=== PATIENT | female | born 1955 | race Caucasian/White ===

== ENCOUNTER → 2020-08-29 15:24 | Outpatient (CLI) | payer MEDICARE, BC, SELFPAY ==
[2020-08-29 16:33] LABS: Coronavirus 19 IgG Antibody Negative (Negative); Coronavirus 19 IgM Antibody Negative (Negative)
[2020-09-02 22:25] LABS: F001-IgE Egg White 0.43 kU/L (Class I); F002-IgE Milk <0.10 kU/L (Class 0); F003-IgE Codfish <0.10 kU/L (Class 0); F004-IgE Wheat 2.87 kU/L (Class III); F013-IgE Peanut 0.14 kU/L (Class 0/I); F014-IgE Soybean 0.13 kU/L (Class 0/I); F024-IgE Shrimp <0.10 kU/L (Class 0); F256-IgE Walnut 0.11 kU/L (Class 0/I); F338-IgE Scallop <0.10 kU/L (Class 0)
[2020-09-03 11:14] LABS: F010-IgE Sesame Seed 0.26 kU/L (Class 0/I)
== END ==
PROVIDERS: Visit Provider Internal Medicine Gastroenterology
DX: R13.10 Dysphagia, unspecified; Z20.822 Contact with and (suspected) exposure to COVID-19; J45.909 Unspecified asthma, uncomplicated
CPT/HCPCS: 36415; 86003; 86008; 86328

== ENCOUNTER 2020-08-31 08:53 | Day surgery (SDC) | payer MEDICARE, BC, SELFPAY ==
[2020-08-29 13:28] VITALS: BMI 34.0
[2020-08-31] VITALS (7 sets, daily range): BP systolic 111–142; BP diastolic 61–73; PULSE 61–80; RESP 18–20; TEMP 36.4–36.5; O2SAT 95–98
--- NOTE | 2020-08-31 10:48 | HMH.PROC ---
[facility] Procedure Note Procedure Note:: Upper Endoscopy Procedure Report: Esophagogastroduodenoscopy with cold biopsies and TTS balloon dilation Endoscopost: Mic Vang II, MD Referring Physician: Leon Richards MD ([facility]) Date of Procedure: August 31, 2020 Equipment: Olympus GIF 180 standard upper endoscope Sedation: MAC sedation Indications: Mrs. Sahni is a 64-year-old female who is here for diagnostic/therapeutic upper endoscopy. The patient has had progressive dysphagia to primarily breads and meats (solid foods) and must chew her food well when she swallows. She has no liquid dysphagia. She has had to regurgitate food content at times. This is increasing in frequency and severity. She reports painful swallowing with this. She reports no significant heartburn or reflux which is only occasional. She has occasional bloating and belching. The patient did have an EGD with ak in June 2013 and had mild changes of eosinophilic esophagitis and I did dilate the esophagus to 18 mm. She did have a colonoscopy with ak in June 2018 and has a history of adenomatous polyps. Her sister had colon cancer in her early 60s and her mother had colon cancer at the age of 81. Procedure: Prior to the procedure, a history and physical exam was performed, and patient's medications and allergies were reviewed. The risks, benefits and alternatives of the sedation and procedure were discussed with the patient. All questions were answered and informed consent was obtained. The patient was brought to the procedure room. Patient identification and proposed procedure were verified by the physician and the nurse. The patient was placed in a left lateral decubitus position and the scope was passed under direct vision. Throughout the procedure, the patient's blood pressure, pulse, and oxygen saturations were monitored continuously. The upper GI endoscopy was accomplished without difficulty. The patient tolerated the procedure well. Findings: The scope was passed directly into the upper esophagus and advanced to the third portion of the duodenum. The post bulbar duodenum and duodenal bulb were normal with normal mucosa and conniventes. The scope was withdrawn through a normal duodenal bulb and pylorus into the stomach. There was moderate bile reflux with linear reactive gastropathy of the antrum and body. The remainder of the antrum, body and fundus of the stomach were grossly normal. Upon retroflexion there was 2 to 3 cm medium sized hiatal hernia. 2 biopsies were taken in the antrum and along the lesser curvature for histology to rule out gastritis and/or H pylori. The scope was then withdrawn into the esophagus. There was a serrated Z-line and biopsies were taken at the GE junction. There was a distal fibrous ring and there was diffuse corrugation, striation and furrowing within the esophagus and biopsies were taken from the distal and proximal esophagus separately to rule out eosinophilic esophagitis. The entire esophagus was dilated to 18 mm/54 Turkish with a TTS hydrostatic balloon. The remainder of the esophageal mucosa was normal. Impression: 1. Probable eosinophilic esophagitis with esophageal stenosis status post dilation to 18 mm 2. Nonerosive GERD with medium sized (3 cm) hiatal hernia 3. Bile reflux with linear reactive gastropathy Plan: I will place the patient on omeprazole 40 mg p.o. daily. I will follow-up the biopsies. I am going to recommend Rast food allergy testing today. If she does have evidence of food allergens, I will recommend a 12-week course of fluticasone. We will discuss eosinophilic esophagitis and treatment options including diet.
--- NOTE | 2020-08-31 11:55 | SUR.PHASEII ---
LAB WORK TO BE DONE ON BLOOD SAMPLE THAT IS ALREADY IN [facility].
--- NOTE | 2020-08-31 13:48 | P.PN_ITS ---
[facility] Anesthesia Checklist - Patient Identification Patient Identification: Arm Band - Structural Data Admitted From: Home Planned Operative Procedure/s: egd Consent for Planned Operative Procedure(s) Verified: Yes Verified Documents: Surgical Consent - Chart Verification Results Verified: None - Anesthesia Plan Anesthesia Risk discussed: Yes Anesthesia Plan: Verified ASA Class: III Anesthesia Type: General [facility] History Medical History: Reports:: Cancer (breast), Hyperlipidemia, Hypertension Denies:: Diabetes Mellitus Type 1, Diabetes Mellitus Type 2, Internal Pacemaker, MRSA, Seizures *Have you ever received a pneumonia vaccine?: Yes *Have you received a flu vaccine this season?: Yes Anesthesia experience/problems:: none Laterality Cases: Right: Arthroscopy Hip, Lumpectomy Other Surgeries: Yes: Cardiac Catheterization. No: Pacemaker Amputation: No Fractures: No - *Social History Last grade of school completed: Advanced degree Alcohol Intake: current Alcohol Intake Frequency:: a few times a month Substance Use Type: denies use *Occupational Status:: retired Housing: house Household Members: spouse *Travel in the last 8 weeks: Inside the [facility] Family Hx:: No significant family history
== END 2020-08-31 12:00 | disposition home or self-care (01) ==
LOC: OUTP 08:57
PROVIDERS: PCP Family Medicine; Visit Provider Internal Medicine Gastroenterology
PROC: 0DJ08ZZ Inspection of Upper Intestinal Tract, Via Natural or Artificial Opening Endoscopic (ICD-10-PCS; CPT 43235; principal; 2020-08-31 10:00)
DX: K22.2 Esophageal obstruction (principal); K44.9 Diaphragmatic hernia without obstruction or gangrene; K21.9 Gastro-esophageal reflux disease without esophagitis; K31.9 Disease of stomach and duodenum, unspecified; K22.9 Disease of esophagus, unspecified; Z80.0 Family history of malignant neoplasm of digestive organs; Z85.3 Personal history of malignant neoplasm of breast; E78.5 Hyperlipidemia, unspecified; I10 Essential (primary) hypertension; Z88.0 Allergy status to penicillin; Z88.8 Allergy status to other drugs, medicaments and biological substances; Z91.040 Latex allergy status
CPT/HCPCS: 43239; 43249; 88305; C1726

== ENCOUNTER → 2020-12-03 15:38 | Outpatient (POV) | payer MEDICARE, BC, SELFPAY | PROVIDERS: Visit Provider Nurse Practitioner Family | DX: Z00.00 Encounter for general adult medical examination without abnormal findings (principal) ==

== ENCOUNTER → 2021-09-18 14:21 | Outpatient (CLI) | payer MEDICARE, BC, SELFPAY ==
--- NOTE | 2021-09-18 | US_ITS ---
PROCEDURE INFORMATION: Exam: US Right Breast, Complete MG Bilateral Diagnostic Breast Tomosynthesis Exam date and time: 09/18/2021 2:28 PM Age: 65 years old Clinical indication: HX of right breast cancer, new right palp for 1 week that has increased in size since she found it, found after trauma to right breast a month ago, PT has had radiation to right breast TECHNIQUE: Imaging protocol: Complete ultrasound of all four quadrants of the Right breast and the retroareolar regions, including ultrasound of the axilla when performed. Bilateral Diagnostic tomosynthesis and 2D mammography including computer-aided detection (CAD) when performed. Unilateral or bilateral exam. COMPARISON: No relevant prior studies available. FINDINGS: MAMMOGRAPHY: The breast tissue is composed of scattered areas of fibroglandular density. A skin marker was placed over the palpable abnormality in the right 9 o'clock axis. The spot compression views demonstrate normal overlapping fibroglandular structures. There is no stellate mass, suspicious architectural distortion or suspicious microcalcifications in either breast to suggest malignancy.Stable post operative architectural distortion in the right upper outer quadrant due to prior lumpectomy for carcinoma. No skin thickening or axillary adenopathy. ULTRASOUND: Sonographic images of the right 9 o'clock axis 4 cm from the nipple where the patient reports palpable abnormality demonstrates slight increased echogenicity of the subcutaneous fat and underlying subcentimeter cysts suggestive of benign posttraumatic fat necrosis. Benign scar more peripherally in the right 9 o'clock axis is due to prior lumpectomy. Sonography of the remainder of the right breast does not demonstrate any suspicious findings. No axillary adenopathy. IMPRESSION: Palpable abnormality in the right lateral breast corresponds sonographically to probable posttraumatic benign fat necrosis. A six-month follow-up targeted right breast ultrasound is recommended to ensure stability over time unless otherwise clinically indicated. ASSESSMENT: BI-RADS Category 3: Probably benign
== END ==
PROVIDERS: PCP Family Medicine; Visit Provider Family Medicine
DX: N63.13 Unspecified lump in the right breast, lower outer quadrant (principal); Z85.3 Personal history of malignant neoplasm of breast
CPT/HCPCS: 76641; 77062; 77066; G0279

== ENCOUNTER → 2022-03-18 14:38 | Outpatient (CLI) | payer MEDICARE, BC, SELFPAY ==
--- NOTE | 2022-03-18 14:43 | US_ITS ---
PROCEDURE INFORMATION: Exam: US Right Breast, Complete Exam date and time: 03/18/2022 3:01 PM Age: 66 years old Clinical indication: Short-term radiographic follow-up for probable fat necrosis in the right lateral breast TECHNIQUE: Imaging protocol: Complete ultrasound of all four quadrants of the Right breast and the retroareolar regions, including ultrasound of the axilla when performed. COMPARISON: US BREAST RT COMPLETE 09/18/2021 3:09 PM FINDINGS: Breast: Sonographic images of the right 9 o'clock axis 6 cm from the nipple demonstrates a vertically oriented irregularly marginated hypoechoic solid mass measuring 1.0 x 0.5 x 1.0 cm in dimension. The finding may reflect fat necrosis. However underlying carcinoma cannot excluded. Sonographic images of the right 9 o'clock axis 9 cm from the nipple over an area scarring does not demonstrate any suspicious findings. No focal findings in the remainder of the right breast or retroareolar region. No axillary adenopathy. IMPRESSION: Indeterminate solid appearing vertically oriented mass in the right 9 o'clock axis 6 cm from the nipple. Ultrasound-guided core biopsy is recommended for further evaluation. ASSESSMENT: BI-RADS Category 4: Suspicious
== END ==
PROVIDERS: PCP Family Medicine; Visit Provider Family Medicine
DX: R92.8 Other abnormal and inconclusive findings on diagnostic imaging of breast (principal)
CPT/HCPCS: 76641

== ENCOUNTER → 2022-03-27 10:26 | Outpatient (CLI) | payer MEDICARE, BC, SELFPAY ==
--- NOTE | 2022-03-27 10:35 | US_ITS ---
FINAL REPORT CLINICAL HISTORY: ABN MAMM,MASS OF UPPER OUTER QUADRANT FINDINGS: ULTRASOUND-GUIDED RIGHT BREAST CORE BIOPSY TECHNIQUE: Limited images were obtained to localize region of interest. The right breast was prepped in a routine sterile fashion and locally anesthetized with 1% lidocaine. Standard written informed consent was obtained. The biopsy needle was positioned within the outer periphery of the lesion. A total of 4 passes were made with a 18 gauge core biopsy needle. A biopsy marker clip was deployed in satisfactory position. Postbiopsy mammogram showed postbiopsy changes with clip in satisfactory position. Procedure was well tolerated . CONCLUSION: 1. Technically successful ultrasound guided core biopsy of right breast lesion as above. 2. Biopsy marker clip deployed Authenticated and ERN
--- NOTE | 2022-03-27 10:38 | MM_ITS ---
FINAL REPORT CLINICAL HISTORY: .s/p clip placement, breast biopsy FINDINGS: MAMMOGRAM RIGHT TECHNIQUE: Standard digital 2-D views COMPARISON: None DENSITY: There are scattered areas of fibroglandular density FINDINGS: Post biopsy marker clip is noted to be in satisfactory position. Biopsy marker clip is noted within a partially calcified nodule with lucent center. This would correspond to a benign nodule accounting for the sonographic lesion. Postbiopsy changes are noted. IMPRESSION: Biopsy marker clip in good position RECOMMENDATION: Pending histopathology evaluation Authenticated and [facility]N
== END ==
PROVIDERS: PCP Internal Medicine; Visit Provider Internal Medicine
DX: N63.11 Unspecified lump in the right breast, upper outer quadrant (principal)
CPT/HCPCS: 19083; 76942; 77065; 88305

== ENCOUNTER → 2022-09-19 15:08 | Outpatient (CLI) | payer MEDICARE, BC, SELFPAY ==
--- NOTE | 2022-09-19 15:11 | MM_ITS ---
PROCEDURE INFORMATION: Exam: MG Bilateral Screening 3D Mammography Exam date and time: 09/19/2022 3:10 PM Age: 66 years old Clinical indication: Screening mammogram. Personal history of right breast cancer with Lumpectomy and radiation therapy TECHNIQUE: Imaging protocol: Bilateral Screening tomosynthesis and 2D mammography including computer-aided detection (CAD) when performed. COMPARISON: 1. MG MM CLIP PLACEMENT RT 03/27/2022 11:15 AM 2. MG MM DIG MAMM BI DX W/CAD 09/18/2021 2:32 PM 3. MG MAMMO SCREENING DIGITAL TOMOSYNTHESIS BILATERAL W CAD 09/04/2020 1:36 PM FINDINGS: MAMMOGRAPHY: Breast composition: There are scattered areas of fibroglandular density. Mass: None. Architectural distortion: No new or suspicious architectural distortion. Calcifications: Stable benign-appearing calcifications are present. No new or suspicious cluster of microcalcifications have developed. Asymmetric density: No new or suspicious asymmetric density is present Skin thickening: None. Axillary adenopathy: None. Other findings: Stable postoperative findings are present in the upper outer right breast. IMPRESSION: No mammographic evidence of malignancy. Recommend annual screening mammography unless otherwise clinically indicated. ASSESSMENT: BI-RADS category 2: Benign
== END ==
PROVIDERS: PCP Internal Medicine; Visit Provider Internal Medicine
DX: Z12.31 Encounter for screening mammogram for malignant neoplasm of breast (principal)
CPT/HCPCS: 77063; 77067

== ENCOUNTER → 2023-03-24 14:09 | Outpatient (CLI) | payer MEDICARE, BC, SELFPAY ==
--- NOTE | 2023-03-24 14:14 | US_ITS ---
PROCEDURE INFORMATION: Exam: US Right Breast, Complete Exam date and time: 03/24/2023 2:38 PM Age: 67 years old Clinical indication: History of right lumpectomy. TECHNIQUE: Imaging protocol: Complete ultrasound of all four quadrants of the right breast and the retroareolar regions, including ultrasound of the axilla when performed. COMPARISON: US BREAST RT COMPLETE 03/18/2022 3:01 PM FINDINGS: Breast: Sonographic images of the right breast including the retroareolar region, all 4 quadrants and the axilla do not demonstrate any suspicious solid or cystic masses. Two incidental subcentimeter benign oil cysts in the right 9 o'clock axis. No suspicious architectural distortion or acoustical shadowing. Architectural distortion from post lumpectomy scarring is again noted in the right peripheral 9 o'clock axis. No suspicious skin thickening or axillary adenopathy. IMPRESSION: No sonographic evidence of malignancy. Annual mammographic screening is recommended in September 2023 unless otherwise clinically indicated. ASSESSMENT: BI-RADS Category 2: Benign
== END ==
PROVIDERS: PCP Internal Medicine; Visit Provider Internal Medicine
DX: N63.13 Unspecified lump in the right breast, lower outer quadrant (principal)
CPT/HCPCS: 76641

== ENCOUNTER 2023-09-11 12:11 | Outpatient (CLI) | payer MEDICARE, BC, SELFPAY ==
--- NOTE | 2023-09-11 12:23 | XR_ITS ---
FINAL REPORT CLINICAL HISTORY: foot pain FINDINGS: Right foot Three views were obtained. There is no acute fracture or dislocation. The joint spaces appear normal. There is mild calcaneal spurring. No soft tissue abnormality is identified. IMPRESSION: No acute process. Reviewed, Interpreted and Dictated by Ciara Rolon MD Transcribed by Suly Stevens Authenticated and . [facility]
--- NOTE | 2023-09-11 12:23 | XR_ITS ---
FINAL REPORT CLINICAL HISTORY: foot pain FINDINGS: Left foot Three views were obtained. There is no acute fracture or dislocation. The joint spaces appear normal. There is mild calcaneal spurring. No soft tissue abnormality is identified. IMPRESSION: No acute process. Reviewed, Interpreted and Dictated by Ciara Rolon MD Transcribed by Suly Stevens Authenticated and [facility]
[2023-09-11 12:31] LABS: Basophils # 0.1 K/mm3 (0-0.2); Eosinophils # 0.2 K/mm3 (0.0-0.4); Eosinophils % 2.9 % (0.1-12.0); Hematocrit 41.7 % (37.0-47.0); Hemoglobin 13.7 g/dL (12.2-16.2); Lymphocytes # 2.3 K/mm3 (0.7-4.5); Lymphocytes % 35.2 % (10-50); Mean Corpuscular HGB Conc 32.8 g/dL (31.8-35.4); Mean Corpuscular Hemoglobin 30.4 pg (27.0-31.2); Mean Corpuscular Volume 92.9 fl (81-99); Mean Platelet Volume 8.2 fl (7.4-10.4); Monocytes # 0.4 K/mm3 (0.1-1.0); Monocytes % 6.6 % (1.7-9.3); Neutrophils # 3.5 K/mm3 (1.8-7.8); Neutrophils % 54.3 % (37.0-80.0); Platelet Count 224 K/mm3 (142-424); Red Blood Count 4.49 M/mm3 (4.20-5.40); Red Cell Distribution Width 12.5 % (11.5-17.5); White Blood Count 6.4 K/mm3 (4.8-10.8)
[2023-09-11 13:02] LABS: Alanine Aminotransferase 27 U/L (12-78); Albumin Level 4.1 g/dl (3.5-5.0); Albumin/Globulin Ratio 1.6 (1.1-1.8); Alkaline Phosphatase 63 U/L (38-126); Anion Gap 8.2 mEq/L (5-15); Aspartate Amino Transferase 29 U/L (14-36); Bilirubin,Total 1.6 mg/dl (0.2-1.3); Blood Urea Nitrogen 13 mg/dl (7-17); Calcium 9.8 mg/dl (8.4-10.2); Carbon Dioxide 33 mmol/L (22.0-30.0); Chloride 107 mmol/L (98-107); Estimated Glomerular Filt Rate 71 ml/min (>60); GFR (African American) 86 ML/MIN (>60); Globulin 2.6 g/dL (1.3-3.2); Glucose 96 mg/dl (74-100); Potassium 4.2 mmoL/L (3.5-5.1); Sodium 144 mmol/L (136-145); Total Protein,Serum 6.7 g/dl (6.3-8.2)
[2023-09-11 13:07] LABS: Erythrocyte Sedimentation Rate 15 mm/hr (0-30)
[2023-09-11 13:13] LABS: C-Reactive Protein < 0.3 mg/L (0-4)
== END 2023-09-11 23:59 ==
LOC: LAB 12:13
PROVIDERS: PCP Internal Medicine; Visit Provider Podiatrist
DX: L03.90 Cellulitis, unspecified (principal); M79.672 Pain in left foot; M79.671 Pain in right foot
CPT/HCPCS: 36415; 73630; 80053; 85025; 85651; 86140

== ENCOUNTER 2023-09-21 13:44 | Outpatient (CLI) | payer MEDICARE, BC, SELFPAY ==
--- NOTE | 2023-09-21 13:47 | MM_ITS ---
PROCEDURE INFORMATION: Exam: MG Bilateral Screening 3D Mammography Exam date and time: 09/21/2023 1:44 PM Age: 67 years old Clinical indication: Screening examination . Personal history of right breast carcinoma treated with lumpectomy and radiation in 1997. Family history of breast carcinoma. TECHNIQUE: Imaging protocol: Bilateral Screening tomosynthesis and 2D mammography including computer-aided detection (CAD) when performed. COMPARISON: 1. MG MM DIG SCREENING MAMM BI W/CAD 09/19/2022 3:10 PM 2. MG MM CLIP PLACEMENT RT 03/27/2022 11:15 AM 3. MG MM DIG MAMM BI DX W/CAD 09/18/2021 2:32 PM FINDINGS: MAMMOGRAPHY: Breast composition: There are scattered areas of fibroglandular density. Mass: No suspicious masses. Architectural distortion: No suspicious distortion. Stable post lumpectomy architectural distortion in the upper right breast. Calcifications: No suspicious calcifications. Asymmetric density: None. Skin thickening: None. Axillary adenopathy: None. IMPRESSION: No mammographic evidence of malignancy. Annual screening is recommended unless otherwise clinically indicated. ASSESSMENT: BI-RADS Category 2: Benign
== END 2023-09-21 23:59 ==
LOC: RAD 13:44
PROVIDERS: PCP Internal Medicine; Visit Provider Internal Medicine
DX: Z12.31 Encounter for screening mammogram for malignant neoplasm of breast (principal)
CPT/HCPCS: 77063; 77067

== ENCOUNTER 2024-06-08 13:04 | Outpatient (CLI) | payer MEDICARE, BC, SELFPAY ==
--- NOTE | 2024-06-08 13:08 | XR_ITS ---
PROCEDURE INFORMATION: Exam: XR Right Ankle Exam date and time: 06/08/2024 1:09 PM Age: 68 years old Clinical indication: Pain; Ankle; Right; Additional info: Ankle pain/injury TECHNIQUE: Imaging protocol: Radiologic exam of the right ankle. Views: 3 or more views. COMPARISON: CR XR ANKLE WT BEARING RT MIN 3V 06/08/2024 1:09 PM FINDINGS: Bones/joints: There is an acute nondisplaced transverse fracture through the base of the 5th metatarsal far partially visualized. Remaining osseous structures and joint surfaces are intact. There are small spurs arising from the posterior plantar aspect of the calcaneus. Alignment is maintained. Soft tissues: Unremarkable. IMPRESSION: Acute transverse fracture base 5th metatarsal
--- NOTE | 2024-06-08 13:08 | XR_ITS ---
PROCEDURE INFORMATION: Exam: XR Right Foot Complete; Alignment Exam date and time: 06/08/2024 1:09 PM Age: 68 years old Clinical indication: Pain; Foot; Right; Additional info: Foot pain/injury TECHNIQUE: Imaging protocol: Radiologic exam of the right foot. Views: 3 or more views. COMPARISON: CR XR FOOT WT BEARING RT 3V 06/08/2024 1:09 PM FINDINGS: Bones/joints: There is an acute transverse oriented nondisplaced fracture base of the 5th metatarsal with mild distraction of the fracture margins. No significant malalignment. Remaining osseous structures and joint surfaces are intact Soft tissues: Normal. IMPRESSION: Acute transverse fracture base 5th metatarsal.
--- NOTE | 2024-06-08 13:08 | XR_ITS ---
PROCEDURE INFORMATION: Exam: XR Right Tibia and Fibula Exam date and time: 06/08/2024 1:09 PM Age: 68 years old Clinical indication: Pain; Lower leg; Right; Additional info: Pain/injury TECHNIQUE: Imaging protocol: Radiologic exam of the right tibia and fibula. Views: 2 views. COMPARISON: CR XR ANKLE WT BEARING RT MIN 3V 06/08/2024 1:09 PM FINDINGS: Bones/joints: Mild-moderate degenerative changes involving the knee joint. Osseous structures are otherwise unremarkable. No evidence of fracture or malalignment. No underlying bone lesion detected. Soft tissues: Unremarkable. IMPRESSION: No acute bony abnormalities.
== END 2024-06-08 23:59 | disposition home or self-care (01) ==
LOC: RAD 13:05
PROVIDERS: PCP Internal Medicine; Visit Provider Podiatrist
DX: M79.671 Pain in right foot (principal)
CPT/HCPCS: 73590; 73610; 73630

== ENCOUNTER 2024-06-27 14:29 | Outpatient (CLI) | payer MEDICARE, BC, SELFPAY ==
--- NOTE | 2024-06-27 14:34 | XR_ITS ---
FINAL REPORT CLINICAL HISTORY: pain COMPARISON: None FINDINGS: RIGHT ANKLE 3 views of the right ankle were obtained. There is no acute fracture or dislocation. The mortise is intact. Visualized joint spaces are normally aligned. Soft tissues are unremarkable. A small plantar spur is noted. IMPRESSION: No acute bony abnormality. Reviewed, Interpreted and Dictated by Michael Levin MD Transcribed by Debora Darden Authenticated and [facility]
--- NOTE | 2024-06-27 14:34 | XR_ITS ---
FINAL REPORT CLINICAL HISTORY: foot pain COMPARISON: 09/11/2023 FINDINGS: RIGHT FOOT Three views of the right foot were obtained. Best seen on the lateral view, there is a displaced fracture through the base of the fifth metatarsal consistent with a Griffin type fracture. The joint spaces appear normal. No acute soft tissue abnormality is seen. A small calcaneal spur is noted. IMPRESSION: Displaced Griffin type fracture through the base of the fifth metatarsal. Reviewed, Interpreted and Dictated by Michael Levin MD Transcribed by Debora Darden Authenticated and [facility]
== END 2024-06-27 23:59 | disposition home or self-care (01) ==
LOC: RAD 14:31
PROVIDERS: PCP Internal Medicine; Visit Provider Podiatrist
DX: M79.671 Pain in right foot (principal); S93.491A Sprain of other ligament of right ankle, initial encounter; M25.571 Pain in right ankle and joints of right foot
CPT/HCPCS: 73610; 73630

== ENCOUNTER 2024-07-13 07:44 | Outpatient (CLI) | payer MEDICARE, BC, SELFPAY ==
--- NOTE | 2024-07-13 07:45 | CT_ITS ---
FINAL REPORT TECHNIQUE: Thin section axial CT images with coronal and sagittal reformats were performed. 3D images were obtained and reviewed. This study was performed with techniques to keep radiation doses as low as reasonably achievable (ALARA). Individualized dose reduction techniques using automated exposure control or adjustment of mA and/or kV according to the patient''s size were employed. CLINICAL HISTORY: Right Foot Pain COMPARISON: None FINDINGS: There is a mildly comminuted fracture at the proximal aspect of the fifth metatarsal. Mild distraction is noted of the fracture fragments measuring up to 3 mm. There is no evidence of callus formation. There are no masses or fluid collections. There are no soft tissue abnormalities. IMPRESSION: Fifth metatarsal fracture with mild distraction of the fracture fragments. No evidence of callus formation. Reviewed, Interpreted and Dictated by Dhaval Huddleston III, MD Transcribed by Louisa Crowley Authenticated and [facility]
== END 2024-07-13 23:59 | disposition home or self-care (01) ==
LOC: RAD 07:45
PROVIDERS: PCP Internal Medicine; Visit Provider Podiatrist
DX: M25.571 Pain in right ankle and joints of right foot (principal); S93.491D Sprain of other ligament of right ankle, subsequent encounter; S92.354G Nondisplaced fracture of fifth metatarsal bone, right foot, subsequent encounter for fracture with delayed healing
CPT/HCPCS: 73700

== ENCOUNTER 2024-08-01 12:34 | Outpatient (CLI) | payer MEDICARE, BC, SELFPAY ==
--- NOTE | 2024-08-01 12:40 | XR_ITS ---
FINAL REPORT CLINICAL HISTORY: Foot Pain; fifth metatarsal fracture COMPARISON: 06/27/2024 FINDINGS: RIGHT FOOT 3 views of the right foot were obtained. There is sclerosis at the site of the known fifth metatarsal base fracture. However, the fracture line remains evident on the lateral view. There is up to 3 mm of separation at the level of the plantar surface which is unchanged. Soft tissues are unremarkable. IMPRESSION: Some sclerosis at the fracture site without evidence of bony union. Mild displacement of the fracture is stable on the lateral view. Reviewed, Interpreted and Dictated by Ciara Rolon MD Transcribed by Louisa Crowley Authenticated and [facility]
== END 2024-08-01 23:59 | disposition home or self-care (01) ==
LOC: RAD 12:35
PROVIDERS: PCP Internal Medicine; Visit Provider Podiatrist
DX: M79.671 Pain in right foot (principal)
CPT/HCPCS: 73630

== ENCOUNTER 2024-09-08 13:08 | Outpatient (CLI) | payer MEDICARE, BC, SELFPAY ==
--- NOTE | 2024-09-08 13:14 | XR_ITS ---
FINAL REPORT CLINICAL HISTORY: fracture follow up COMPARISON: 08/01/2024 FINDINGS: RIGHT FOOT 3 views of the right foot were obtained. There is no acute fracture or dislocation. There is a fracture of the proximal fifth metatarsal which was present on the prior exam of 08/01/2024. There is persistent visualization of an inferior fracture line seen best on the lateral view. The overall appearance is similar to the prior exam. Visualized joint spaces are normally aligned. Soft tissues are unremarkable. IMPRESSION: Persistent inferior fracture line seen best on the lateral view, stable since the prior exam of 08/01/2024. Reviewed, Interpreted and Dictated by Michael Levin MD Transcribed by Maddison Merritt Authenticated and [facility]
== END 2024-09-08 23:59 | disposition home or self-care (01) ==
LOC: RAD 13:11
PROVIDERS: PCP Internal Medicine; Visit Provider Podiatrist
DX: M79.671 Pain in right foot (principal); S92.354K Nondisplaced fracture of fifth metatarsal bone, right foot, subsequent encounter for fracture with nonunion
CPT/HCPCS: 73630

== ENCOUNTER 2024-09-30 15:55 | Outpatient (CLI) | payer MEDICARE, BC, SELFPAY ==
--- NOTE | 2024-09-30 16:00 | XR_ITS ---
PROCEDURE INFORMATION: Exam: XR Right Foot Complete; Alignment Exam date and time: 09/30/2024 4:10 PM Age: 69 years old Clinical indication: Other: 5th met fracture eval TECHNIQUE: Imaging protocol: Radiologic exam of the right foot. Views: 3 or more views. COMPARISON: CR XR FOOT WT BEARING RT 3V 09/08/2024 1:16 PM FINDINGS: Bones/joints: Subtle fracture at the base of the 5th metatarsal is unchanged from the prior examination. Calcaneal spurs. Joint spaces are preserved. Soft tissues: Normal. IMPRESSION: Unchanged appearance of the proximal 5th metatarsal fracture.
--- NOTE | 2024-09-30 16:03 | MM_ITS ---
PROCEDURE INFORMATION: Exam: MG Bilateral Screening 3D Mammography Exam date and time: 09/30/2024 4:10 PM Age: 69 years old Clinical indication: Screening examination. Personal history of right breast cancer, status post lumpectomy and radiation in 1997. TECHNIQUE: Imaging protocol: Bilateral Screening tomosynthesis and 2D mammography including computer-aided detection (CAD) when performed. COMPARISON: 1. MG MM DIG SCREENING MAMM BI W/CAD 09/21/2023 1:44 PM 2. MG MM DIG SCREENING MAMM BI W/CAD 09/19/2022 3:10 PM 3. MG MM CLIP PLACEMENT RT 03/27/2022 11:15 AM 4. MG MM DIG MAMM BI DX W/CAD 09/18/2021 2:32 PM FINDINGS: MAMMOGRAPHY: Breast composition: There are scattered areas of fibroglandular density. Mass: None. Architectural distortion: Stable right post lumpectomy architectural distortion and deformity. Calcifications: No suspicious calcifications. Asymmetric density: None. Skin thickening: None. Axillary adenopathy: None. IMPRESSION: No mammographic evidence of malignancy. Annual screening is recommended unless otherwise clinically indicated. In women diagnosed with breast cancer before age 50 or with personal histories of breast cancer and dense breasts, the [employer] recommends annual supplemental MRI in addition to yearly mammography. Alternative supplemental studies may include breast sonography or contrast enhanced mammography. ASSESSMENT: BI-RADS Category 1: Negative.
== END 2024-09-30 23:59 | disposition home or self-care (01) ==
LOC: RAD 15:56
PROVIDERS: PCP Internal Medicine; Visit Provider Internal Medicine
DX: Z12.31 Encounter for screening mammogram for malignant neoplasm of breast (principal); M79.671 Pain in right foot; S92.354K Nondisplaced fracture of fifth metatarsal bone, right foot, subsequent encounter for fracture with nonunion
CPT/HCPCS: 73630; 77063; 77067

== ENCOUNTER 2024-10-24 14:23 | Outpatient (CLI) | payer MEDICARE, BC, SELFPAY ==
--- NOTE | 2024-10-24 14:26 | XR_ITS ---
FINAL REPORT CLINICAL HISTORY: eval on right fifth met fracture COMPARISON: 09/30/2024. FINDINGS: RIGHT FOOT 3 views of the right foot were obtained. There is no acute fracture or dislocation. There is a transverse fracture of the base of the fifth metatarsal, which remains mildly displaced. Osteopenia is present. Visualized joint spaces are otherwise normally aligned. Mild degenerative changes of the midfoot are present. Soft tissues are unremarkable. IMPRESSION: Transverse fracture of the base of the fifth metatarsal, remained stable in appearance since the prior exam of 09/30/2024. Reviewed, Interpreted and Dictated by Ciara Rolon MD Transcribed by Maddison Merritt Authenticated and [facility]
== END 2024-10-24 23:59 | disposition home or self-care (01) ==
LOC: RAD 14:24
PROVIDERS: PCP Internal Medicine; Visit Provider Podiatrist
DX: M79.671 Pain in right foot (principal); S82.54XD Nondisplaced fracture of medial malleolus of right tibia, subsequent encounter for closed fracture with routine healing
CPT/HCPCS: 73630

== ENCOUNTER 2024-11-21 13:44 | Outpatient (CLI) | payer MEDICARE, BC, SELFPAY ==
--- NOTE | 2024-11-21 13:49 | XR_ITS ---
FINAL REPORT CLINICAL HISTORY: Right 5th Metarsal Fracture COMPARISON: 10/24/2024 FINDINGS: RIGHT FOOT 3 views of the right foot were obtained. There has been progressive healing of the transverse fracture of the base of the 5th metatarsal. Visualized joint spaces are normally aligned. A small to moderate plantar calcaneal spur is noted. Soft tissues are unremarkable. IMPRESSION: Healing 5th metatarsal fracture. Reviewed, Interpreted and Dictated by Michael Levin MD Transcribed by Louisa Crowley Authenticated and [facility]
== END 2024-11-21 23:59 | disposition home or self-care (01) ==
LOC: RAD 13:45
PROVIDERS: PCP Internal Medicine; Visit Provider Podiatrist
DX: M79.671 Pain in right foot (principal)
CPT/HCPCS: 73630

== ENCOUNTER 2024-11-30 09:04 | Outpatient (CLI) | payer MEDICARE, BC, SELFPAY ==
--- NOTE | 2024-11-30 09:11 | XR_ITS ---
FINAL REPORT TECHNIQUE: Bone densitometry calculations of the lumbar spine and bilateral hips were obtained. CLINICAL HISTORY: SCREENING COMPARISON: None FINDINGS: Using L1-4, the bone mineral density of the spine is 1.050 g/cm2, corresponding to T-score of 0.0 and a Z score of 2.2. This is within the range of normal. Using the left hip, the bone mineral density of the femoral neck is 0.832 g/cm2, corresponding to a T-score of -0.2 and a Z-score of 1.7. This is within the range of normal. Using the right forearm, the bone mineral density of the 1/3 is 0.538 g/cm?, corresponding to a T-score of -2.6 and a Z-score of -0.4. NOTE: T-score: Standard deviation compared with peak bone mass of young adult mean. *Following the recommendations of the International Society of Bone densitometry, classification of hip BMD is based on the lower of two T-scores; total hip or femoral neck. IMPRESSION: 1. Bone mineral density of the lumbar spine within the range of normal. 2. Bone mineral density of the left femoral neck within the range of normal. 3. Bone mineral density of the right forearm is within the range of osteoporosis. Reviewed, Interpreted and Dictated by Juanis Wooyd MD Transcribed by Maddison Merritt Authenticated and [facility]
== END 2024-11-30 23:59 | disposition home or self-care (01) ==
LOC: RAD 09:05
PROVIDERS: PCP Internal Medicine; Visit Provider Internal Medicine
DX: Z78.0 Asymptomatic menopausal state (principal)
CPT/HCPCS: 77080

== ENCOUNTER 2025-02-20 13:43 | Outpatient (CLI) | payer MEDICARE, BC, SELFPAY ==
--- NOTE | 2025-02-20 13:45 | XR_ITS ---
FINAL REPORT CLINICAL HISTORY: evaluate right 5th met fracture healing COMPARISON: 11/21/2024 FINDINGS: Three views of the right foot show a healed 5th metatarsal base fracture with minimal residual deformity. Scattered degenerative changes are noted. There is osteopenia. IMPRESSION: Healed 5th metatarsal fracture. Reviewed, Interpreted and Dictated by Ciara Rolon MD Transcribed by Louisa Crowley Authenticated and [facility]
--- OUTSIDE RECORDS SUMMARY | 2025-02-20 13:53 | XMS_ITS | Clinical Summary ---
Author Organization [employer] ([place], [place], [place], [place]) Address [address] [place] [address] Care Team Providers Care Speech And Drama Teacher Name Role Phone Unavailable Primary Care Provider Unavailabl e Social History Tobacco Use Types Packs/Day Years Used Date Smoking Tobacco: Never Assessed Comments Unknown Sex and Gender Information Value Date Recorded Sex Assigned at Not on file Legal Sex Female 6:45 PM CDT Gender Identity Not on file Sexual Orientation Not on file Plan of Treatment Not on file
--- OUTSIDE RECORDS SUMMARY | 2025-02-20 13:53 | XMS_ITS | Encounter Summary ---
Author Organization [employer] ([place], [place], [place], [place]) Address [address] [place] [address] Care Team Providers Care Correction Lieutenant Name Role Phone Unavailable Primary Care Provider Unavailabl e Encounter Details Date Type Department Care Team (Late st Contact Info) Description 05/25/2019 Transcribed Document [facility] Family Medicine [address] [place] [address] ProviderAnupama MD [address] [place] [address] Social History Tobacco Use Types Packs/Day Years Used Date Smoking Tobacco: Never Assessed Comments Unknown Sex and Gender Information Value Date Recorded Sex Assigned at Not on file Legal Sex Female 6:45 PM CDT Gender Identity Not on file Sexual Orientation Not on file documented as of this encounter Miscellaneous Notes * [employer]ner Conversion Note - Historical ProviderMD - 05/25/2019 3:42 PM CDT Nursing Discharge Summary Entered On: 05/25/2019 15:42 EDT Performed On: 05/25/2019 15:42 EDT by Sandra Leon Registered Nurse Discharge Documentation Discharge Date/Time : 05/25/2019 19:30 EDT Sandra Leon Registered Nurse - 05/25/2019 19:51 EDT Patient Disposition, General : Discharge Discharge To : Home with ambulatory/outpatient follow-up Mode Of Departure, General Discharge : Private vehicle Accompanied By, Discharge : Spouse IV Discontinued : Yes Medications Given to Patient : No Personal Belongings With Patient : Yes Prescriptions Given to Patient : No Discharge Instructions Reviewed With, Opportunity For Questions Given : Patient Patient Education Completed : Yes Teaching Method : Explanation, Printed materials, Teach back method Teaching Evaluation : Verbalizes understanding Sandra Leon Registered Nurse - 05/25/2019 15:42 EDT Electronically signed by [facility] Conversion Meeting Manager Cerner at 11/28/2022 11:27 AM CDT documented in this encounter Plan of Treatment Not on file documented as of this encounter Visit Diagnoses Not on filedocumented in this encounter
--- OUTSIDE RECORDS SUMMARY | 2025-02-20 13:53 | XMS_ITS | Clinical Summary ---
Author Organization [facility] Address [address] [place], [place] [id number] Care Team Providers Care Montessori Lead Teacher Name Role Phone Jb Richards MD Primary Care Provider [phone] Allergies Active Allergy Reactions Criticality Noted Date Comments Ticagrelor Other - please docum ent in the comment field Low 07/01/2023 Disorientation and low BP Penicillins Itching Medium 07/01/2023 Social History Tobacco Use Types Packs/Day Years Used Date Smoking Tobacco: Never Assessed Comments Unknown Sex and Gender Information Value Date Recorded Sex Assigned at Not on file Legal Sex Female 7:38 PM EDT Gender Identity Not on file Sexual Orientation Not on file Last Filed Vital Signs Vital Sign Reading Time Taken Comments Blood Pressure 147/78 07/06/2023 8:44 AM EST Pulse 72 07/06/2023 8:44 AM EST Temperature - - Respiratory Rate - - Oxygen Saturation - - Inhaled Oxygen Concentration - - Weight - - Height - - Body Mass Index - - Plan of Treatment Health Maintenance Due Date Last Done Comments [facility]-Depression Screening 1955 [facility]-Infant/Child/Adol SDOH Screenings 1955 [facility]- SDOH Screenings 1971 [facility]-Adult SDOH Screenings 1971 CT Colonography 1998 Colonoscopy 1998 FIT-DNA 1998 FIT 1998 FOBT 1998 Sigmoidoscopy 1998 [facility]-Colorectal Cancer Screening 1998 [facility]-Breast Cancer Screening 09/04/202208/11, 07/21/2019, 07/09/2018, Additional history exists [facility]-Medicare Annual Wellness (AWV) 10/25/2023 10/24/2022 [facility]-DTaP,Tdap,and Td Vaccines (2 - Td or Tdap) 04/03/2024 04/03/2014 [id number] Vaccine (4 - season) 2024 07/01/2021, 11/14/2020, 10/05/2020 [facility]-Bone Density Scan 01/27/2025 01/27/2023, 023 [facility]-Influenza Vaccine (#1) 04/10/202504/30, 05/03/2021, 05/23/2019, Additional history exists [facility]-RSV Vaccine: 60+ Years or (1 - 1-dose 75+ series) 2028 [facility]-Zoster Vaccines Completed 05/10/2018, 8 [facility]-Hepatitis C Screening Completed 05/06/2022 [facility]-Pneumococcal Vaccine: 50+ Years Completed 10/24/2022, 05/24/2019 [facility]-Diabetes: Hemoglobin A1C Discontinued 04/30/2023, 05/06/2022 HPV Vaccines Aged Out No longer eligi ble based on patient's age to complete this topic [facility]-HIB Vaccines Aged Out No longer e ligible based on patient's age to complete this topic [facility]-Hepatitis A Vaccines Aged Out No longer eligible based on patient's age to complete this topic [facility]-IPV Vaccines Aged Out No longer e ligible based on patient's age to complete this topic [facility]-Rotavirus Vaccines Aged Out No lo nger eligible based on patient's age to complete this topic Insurance MEDICARE ANTHEM Care Teams Montessori Lead Teacher Relationship Specialty Start Date End Date Jb Richards MD [address] [place] [address] PCP - General 07/06/23
--- OUTSIDE RECORDS SUMMARY | 2025-02-20 13:53 | XMS_ITS | Referral Summary ---
Author Organization [employer] ([place], [place], [place], [place]) Address [address] [place] [address] Care Team Providers Care Clinic Office Assistant Name Role Phone Unavailable Primary Care Provider [...]
--- OUTSIDE RECORDS SUMMARY | 2025-02-20 13:53 | XMS_ITS | Encounter Summary ---
Author Organization [employer] ([place], [place], [place], [place]) Address [address] [place] [address] Care Team Providers Care Compliance Mgr Name Role Phone Unavailable Primary Care Provider Unavailabl e Encounter Details Date Type Department Care Team (Late st Contact Info) Description 05/25/2019 Transcribed Document [facility] Family Medicine [address] [place] [address] ProviderAnupama MD [address] [place], [place] [id number] Social History Tobacco Use Types Packs/Day Years Used Date Smoking Tobacco: Never Assessed Comments Unknown Sex and Gender Information Value Date Recorded Sex Assigned at Not on file Legal Sex Female 6:45 PM CDT Gender Identity Not on file Sexual Orientation Not on file documented as of this encounter Miscellaneous Notes * Cerner Conversion Note - Historical ProviderMD - 05/25/2019 7:37 PM CDT Event Note Entered On: 05/25/2019 19:40 EDT Performed On: 05/25/2019 19:37 EDT by Sandra Leon Registered Nurse Event Note Event Date/Time : 05/25/2019 19:00 EDT Description of Event : walked pt entire unit toll well. no c/o. did ortho static bp prior to d/c no changes. Sandra Leon Registered Nurse - 05/25/2019 19:37 EDT documented in this encounter Plan of Treatment Not on file documented as of this encounter Visit Diagnoses Not on filedocumented in this encounter
--- OUTSIDE RECORDS SUMMARY | 2025-02-20 13:53 | XMS_ITS | Encounter Summary ---
Author Organization [employer] ([place], [place], [place], [place]) Address [address] [place] [address] Care Team Providers Care Produce Shipper Name Role Phone Unavailable Primary Care Provider Unavailabl e Encounter Details Date Type Department Care Team (Late st Contact Info) Description 05/25/2019 Transcribed Document [facility] Family Medicine [address] [place] [address] ProviderAnupama MD [address] [place] [address] Social History Tobacco Use Types Packs/Day Years Used Date Smoking Tobacco: Never Assessed Comments Unknown Sex and Gender Information Value Date Recorded Sex Assigned at Not on file Legal Sex Female 6:45 PM CDT Gender Identity Not on file Sexual Orientation Not on file documented as of this encounter Miscellaneous Notes * Cerner Conversion Note - Historical ProviderMD - 05/25/2019 10:55 AM CDT Pre Procedure Adult Entered On: 05/25/2019 10:55 EDT Performed On: 05/25/2019 10:55 EDT by Sandra Leon Registered Nurse Height and Weight, Clinical Dosing Height Source : Stated Height Entry Format : [place] Height, Feet : 5 ft(Converted to: 152 cm, 60 Inch) Height, Inches : 2 Inch(Converted to: 0 ft 2 Inch, 5.08 cm) Clinical Height : 157.48 cm Weight Source : Standing scale Weight Entry Format : [place] Clinical Dosing Weight : 83.64 kg Weight, Pounds : 184 lb Body Surface Area (BSA) : 1.85 m2 Body Mass Index : 33.7 kg/m2 (HI) [place] Body Weight : 50 kg Sandra Leon Registered Nurse - 05/25/2019 10:55 EDT Health Histories Smoking Status : Never (less than 100 in lifetime; none in last 30 days) Smokeless Tobacco Status : Never Sandra Leon Registered Nurse - 05/25/2019 11:26 EDT Social History (As Of: 05/25/2019 11:30:39 EDT) Infectious Disease History Infectious Disease History : None Fever/Chills Last 48 Hours : No Travel To [place] with Travel Advisories : No Travel Outside [place] Within Last 30 Days : No Contact With Traveler to Advisory Region : No Tuberculosis Symptoms : None Sandra Leon Registered Nurse - 05/25/2019 11:26 EDT Anesthesia/Transfusion History Family History of Anesthesia Reaction : Prior transfusion without reaction Transfusion History : Prior anesthesia without reaction Family History of Anesthesia Reaction : None Sandra Leon Registered Nurse - 05/25/2019 11:26 EDT Functional Assessment Living Situation : Home Current Home Treatments : None Sandra Leon Registered Nurse - 05/25/2019 11:26 EDT Psychosocial History Currently in Unsafe Situation : No Tried to Harm Yourself in the Past? : No Thoughts of Harming/Killing Yourself : No Sandra Leon Registered Nurse - 05/25/2019 11:26 EDT Advance Directive Patient has Advance Directive *Q : No, patient refuses Advance Directive information Sandra Leon Registered Nurse - 05/25/2019 11:26 EDT General Info Want Family/Rep/Phys Notified of Admit : No Emergency Contact #1 : na Emergency Contact #1 Phone Number : na Emergency Contact #1 Relationship : na Emergency Contact #2 : na Emergency Contact #2 Phone Number : na Emergency Contact #2 Relationship : na Primary Language : Bulgarian Communication Barrier : None Sandra Leon Registered Nurse - 05/25/2019 11:26 EDT Sleep Apnea Risk Assmt Hx of Obstructive Sleep Apnea Diagnosis : No Snore Loudly : No Tired, Fatigued, or Sleepy During Day : No Observed Stopping Breathing During Sleep : No Have/Are Being Treated for Hypertension : Yes BMI Greater Than 35 kg/m2 : No Age over 50 Years Old : Yes Neck Circumference Greater Than 40 cm : No Gender Male : No STOP-BANG Sleep Apnea Risk Level Score : 2 Sandra Leon Registered Nurse - 05/25/2019 11:26 EDT Buzz Scale Buzz Sensory Perception : No impairment Buzz Moisture : Rarely moist Buzz Activity : Walks frequently Buzz Mobility : No limitation Buzz Nutrition : Adequate Buzz Friction and Shear : No apparent problem Buzz Score : 22 Sandra Leon Registered Nurse - 05/25/2019 11:26 EDT Pain Assessment Pain Assessment : Initial assessment Pain Scale Used : 0-10 Scale Sandra Leon Registered Nurse - 05/25/2019 11:26 EDT Fall Risk Scales ABCs Fall Injury Risk Identification : None GAUTAM Hx Falls Immediate/Within 3 Months : No Gautam Secondary Diagnosis : Yes GAUTAM Use of Ambulatory Aid : None GAUTAM IV Therapy or IV Access : Yes Gautam Gait/Transferring : Normal, bedrest, immobile Gautam Mental Status : Oriented to own ability Gautam Fall Risk Score : 35 GAUTAM Fall Scale Risk Level : 25-45 Medium Risk [place] Fall Interventions : Adequate lighting, Assistive devices within reach, Bed in low position, Call device within reach, Fall prevention handout/education per facility policy, Frequent orientation to call device, Frequent orientation to surroundings, Hourly comfort/safety rounds, Non-slip footwear, Personal items within reach, Reinforced to call for assistance before getting out of bed, Room free of clutter/spills, Upper side-rails up, Wheels locked, Wires/Cords secured Sandra Leon Registered Nurse - 05/25/2019 11:26 EDT Education Topics, Day of Surgery DayofSurgery Education Grid Anesthesia/Sedation : Verbalizes understanding CAUTI : Verbalizes understanding Central Lines : Verbalizes understanding CHG Preoperative Bathing/Cloths : Verbalizes understanding Fall Risks : Verbalizes understanding Family Instructions : Verbalizes understanding Incentive Spirometry : Verbalizes understanding Infection Control : Verbalizes understanding Infection Risks : Verbalizes understanding IV's : Verbalizes understanding Medication Instructions : Verbalizes understanding Pain Management : Verbalizes understanding Plan of Care : Verbalizes understanding Respiratory Care : Verbalizes understanding Responsible Adult : Verbalizes understanding SNE's : Verbalizes understanding Tubes/Drains : Verbalizes understanding Other : Verbalizes understanding Sandra Leon Registered Nurse - 05/25/2019 11:26 EDT Valuables and Belongings Valuables and Belongings : Clothing, Personal devices, Personal items, No comfort items, No jewelry, No assistive devices, No respiratory devices, No medications Clothing : Common streetwear Clothing Disposition : Bedside Personal Device Disposition : With family Personal Devices : Glasses Personal Items : [place], Cell phone, Credit cards, Purse, Wallet Personal Items Disposition : With family Sandra Leon Registered Nurse - 05/25/2019 11:26 EDT Pain Scale Intensity : 0 Sandra Leon Registered Nurse - 05/25/2019 11:26 EDT Image 4 - Images currently included in the form version of this document have not been included in the text rendition version of the form. documented in this encounter Plan of Treatment Not on file documented as of this encounter Visit Diagnoses Not on filedocumented in this encounter
--- OUTSIDE RECORDS SUMMARY | 2025-02-20 13:53 | XMS_ITS | Encounter Summary ---
Author Organization [employer] ([place], [place], [place], [place]) Address [address] [place] [address] Care Team Providers Care Game And Fish Protector Name Role Phone Unavailable Primary Care Provider Unavailabl e Encounter Details Date Type Department Care Team (Late st Contact Info) Description 05/25/2019 Transcribed Document [facility] Family Medicine [address] [place] [address] ProviderAnupama MD [address] [place] [address] Social History Tobacco Use Types Packs/Day Years Used Date Smoking Tobacco: Never Assessed Comments Unknown Sex and Gender Information Value Date Recorded Sex Assigned at Not on file Legal Sex Female 6:45 PM CDT Gender Identity Not on file Sexual Orientation Not on file documented as of this encounter Miscellaneous Notes * Cerner Conversion Note - Anupama Hollis MD - 05/25/2019 3:41 PM CDT Patient Education Materials Follows: Moderate Conscious Sedation, Adult, Care After These instructions provide you with information about caring for yourself after your procedure. Your health care provider may also give you more specific instructions. Your treatment has been planned according to current medical practices, but problems sometimes occur. Call your health care provider if you have any problems or questions after your procedure. What can I expect after the procedure? After your procedure, it is common: ??? To feel sleepy for several hours. ??? To feel clumsy and have poor balance for several hours. ??? To have poor judgment for several hours. ??? To vomit if you eat too soon. Follow these instructions at home: For at least 24 hours after the procedure: ??? Do not: ? Participate in activities where you could fall or become injured. ? Drive. ? Use heavy machinery. ? Drink alcohol. ? Take sleeping pills or medicines that cause drowsiness. ? Make important decisions or sign legal documents. ? Take care of children on your own. ??? Rest. Eating and drinking ??? Follow the diet recommended by your health care provider. ??? If you vomit: ? Drink water, juice, or soup when you can drink without vomiting. ? Make sure you have little or no nausea before eating solid foods. General instructions ??? Have a responsible adult stay with you until you are awake and alert. ??? Take [id number] and prescription medicines only as told by your health care provider. ??? If you smoke, do not smoke without supervision. ??? Keep all follow-up visits as told by your health care provider. This is important. Contact a health care provider if: ??? You keep feeling nauseous or you keep vomiting. ??? You feel light-headed. ??? You develop a rash. ??? You have a fever. Get help right away if: ??? You have trouble breathing. This information is not intended to replace advice given to you by your health care provider. Make sure you discuss any questions you have with your health care provider. Document Released: 05/17/2014 Document Revised: 12/29/2016 Document Reviewed: 11/15/2016 [employer] Patient Education ? 2019 [employer] documented in this encounter Plan of Treatment Not on file documented as of this encounter Visit Diagnoses Not on filedocumented in this encounter
--- OUTSIDE RECORDS SUMMARY | 2025-02-20 13:53 | XMS_ITS | Encounter Summary ---
Author Organization [facility] ([place], [place], [place], [place]) Address [address] [place] [address] Care Team Providers Care Electronic Scale Assembler And Tester Name Role Phone Unavailable Primary Care Provider Unavailabl e Encounter Details Date Type Department Care Team (Late st Contact Info) Description 05/25/2019 Transcribed Document [facility] Cardiology [address] [place] [address] Yannick Anderson MD [address] [facility] [address] [place] [id number] Social History Tobacco Use Types Packs/Day Years Used Date Smoking Tobacco: Never Assessed Comments Unknown Sex and Gender Information Value Date Recorded Sex Assigned at Not on file Legal Sex Female 6:45 PM CDT Gender Identity Not on file Sexual Orientation Not on file documented as of this encounter Miscellaneous Notes * Cerner Conversion Note - Yannick Anderson MD - 05/25/2019 9:51 AM EDT Patient: NATY GRAY Age: 63 years Sex: Female : 1955 Associated Diagnoses: None Author: YANNICK ANDERSON MD-CAR Basic Information PCP: Leon Richards MD Manager Metrology: Debora Lanier MD Chief Complaint chest pain History of Present Illness 63 year old female with a history hypertension, hyperlipidemia, and breast cancer. She was seen by Dr Lanier for evaluation of chest pain. She describes the pain as severe and substernal. The pain typically occurs with physical exertion. The pain radiates into the right arm and jaw. She has significant risk factors for CAD including HTN, HLD, obesity, and family history of premature CAD. She has been scheduled for elective cardiac cath. Review of Systems Constitutional: Negative except as documented in history of present illness. Eye: Negative except as documented in history of present illness. Ear/Nose/Mouth/Throat: Negative except as documented in history of present illness. Respiratory: Negative except as documented in history of present illness. Cardiovascular: Negative except as documented in history of present illness. Gastrointestinal: Negative except as documented in history of present illness. Genitourinary: Negative except as documented in history of present illness. Hematology/Lymphatics: Negative except as documented in history of present illness. Endocrine: Negative except as documented in history of present illness. Immunologic: Negative except as documented in history of present illness. Musculoskeletal: Negative except as documented in history of present illness. Integumentary: Negative except as documented in history of present illness. Neurologic: Negative except as documented in history of present illness. Psychiatric: Negative except as documented in history of present illness. Health Status No qualifying data available No qualifying data available Allergies: Allergic Reactions (Selected) Severity Not Documented Cephalosporins- Rash sob and rash sob. Latex- Blisters beneath skin~skin rash, blisters beneath skin and skin rash. Penicillin- No reactions were documented. SulfADIAZINE- Rash sob and rash sob. Current medications: (Selected) Inpatient Medications Ordered Normal Saline Flush: 10 mL, IV Push, Q12H Normal Saline Flush: 10 mL, IV Push, See Comment, PRN: IV Use Sodium Chloride 0.9% intravenous solution 500 mL: Titrate, IntraVENous Zofran: 4 mg, IV Push, Q4H, PRN: Nausea Completed Brilinta: 180 mg, Oral, 1-Time atorvastatin: 80 mg, Oral, PREOP Documented Medications Documented Dulera 200 mcg-5 mcg/inh inhalation aerosol: Puff, Inhalation, BID, 0 Refill(s) MiraLax oral powder for reconstitution: 17 Gram, Oral, Daily, 0 Refill(s) Nitrostat 0.4 mg sublingual tablet: 1 Tab, SubLINgual, Q5Min, PRN: as needed for chest pain, 100 Tab, 0 Refill(s) aspirin 81 mg oral delayed release tablet: 1 Tab, Oral, Daily, 30 Tab, 0 Refill(s) hydroCHLOROthiazide 25 mg oral tablet: Tab, Oral, Daily, PRN: Edema, 0 Refill(s) hydrochlorothiazide-losartan 25 mg-100 mg oral tablet: 1 Tab, Oral, Daily, 30 Tab, 0 Refill(s) isosorbide mononitrate 30 mg oral tablet, extended release: Tab, Oral, QAM, 0 Refill(s) metoprolol succinate 25 mg oral capsule, extended release: Cap, Oral, Daily, 0 Refill(s) rosuvastatin 40 mg oral tablet: 1 Tab, Oral, Daily, 30 Tab, 0 Refill(s) Deleted Dulera 200 mcg-5 mcg/inh inhalation aerosol: 2 Puff, Inhalation, BID, 0 Refill(s), No qualifying data available Problem list: All Problems HTN - Hypertension / SNOMED CT 9759211040 / Confirmed HLD - Hyperlipidemia / SNOMED CT 665373916 / Confirmed Asthma / SNOMED CT 683929877 / Confirmed Breast CA / SNOMED CT 723217831 / Confirmed right breast 1998 At risk for sleep apnea / IMO [id number] / Confirmed, No qualifying data available Histories No education data available. Social & Psychosocial Habits No Data Available Past Medical History: Active HLD - Hyperlipidemia (988667119) HTN - Hypertension (3373001354) Family History: Coronary heart disease Father: onset at 48 . Procedure history: hysterectomy. lumpectomy. right hip replacement. Physical Examination VS/Measurements No qualifying data available General: Alert and oriented. Eye: Pupils are equal, round and reactive to light. HENT: Normocephalic. Neck: Supple, No carotid bruit, No jugular venous distention. Respiratory: Lungs are clear to auscultation, Respirations are non-labored, Breath sounds are equal. Cardiovascular: Normal rate, Regular rhythm, No murmur, No gallop, Good pulses equal in all extremities. Gastrointestinal: Soft, Non-tender, Non-distended, Normal bowel sounds. Musculoskeletal: Normal range of motion, Normal strength. Integumentary: Warm, Dry, [place]. Neurologic: Alert, Oriented. Psychiatric: Cooperative. Review / Management No qualifying data available Cardiac Markers (Current Encounter/Past 24 Hours) No Cardiac Marker Results Found (Past 24 Hours) Blood Gases (Current Encounter/Past 24 Hours) No Blood Gas Results Found (Past 24 Hours) No Radiology Results Found Results review: No qualifying data available. Impression and Plan IMPRESSION: * Symptoms of exertional chest tightness concerning for angina Prior cath in 2007 normal coronary arteries * HTN * HLD PLAN; Cardiac cath with possible catheter based intervention. Risks, benefits, and alternative therapy discussed in detail. She has given verbal and written consent. Right radial access selected. documented in this encounter Plan of Treatment Not on file documented as of this encounter Visit Diagnoses Not on filedocumented in this encounter
--- OUTSIDE RECORDS SUMMARY | 2025-02-20 13:53 | XMS_ITS | Encounter Summary ---
Author Organization [facility] ([place], [place], [place], [place]) Address [address] [place] [address] Care Team Providers Care Plate Drying Machine Tender Name Role Phone Unavailable Primary Care Provider Unavailabl e Encounter Details Date Type Department Care Team (Late st Contact Info) Description 05/25/2019 Transcribed Document [facility] [address] [place] [address] ProviderAnupama MD [address] [place] [address] Social History Tobacco Use Types Packs/Day Years Used Date Smoking Tobacco: Never Assessed Comments Unknown Sex and Gender Information Value Date Recorded Sex Assigned at Not on file Legal Sex Female 6:45 PM CDT Gender Identity Not on file Sexual Orientation Not on file documented as of this encounter Miscellaneous Notes * Cerner Conversion Note - Anupama ProviderMD - 05/25/2019 3:43 PM CDT [facility] [place] [address] NATY GRAY SULLY :1955 Visit Time:05/25/2019 Your Visit Summary Your Care Team Admitting Physician - COBY JUÁREZ MD-CAR Attending Physician - COBY JUÁREZ MD-CAR Primary Care Physician - RAO BARONE (REF), -[facility] Referring Physician - COBY JUÁREZ MD-CAR Your Diagnosis Other forms of angina pectoris, Other forms of angina pectoris Discharge Vitals Heart Rate (Monitored) 70 Respiratory Rate 15 Blood Pressure 127/76 Blood Pressure 120/77(Line) What to do next Instructions From Your Care Team resume diet and medications. may drive tomm after 3:30pm. Follow-Up Appointments Follow Up with DARLINE MCMAHON When 06/14/2019 09:00 AM EST Where: [address] [place] [address]- Business (1) Medications What How Much When Instructions Next Dose aspirin (aspirin 81 mg oral delayed release tablet) 1 Tablet(s) Oral Every Day formoterol-mometasone (Dulera 200 mcg-5 mcg/ inh inhalation aerosol) Inhalation Two Times A Day hydroCHLOROthiazide (hydroCHLOROthiazide 25 mg oral tablet) Oral Every Day as needed for Edema hydrochlorothiazide-losartan (hydrochlorothiazide-losartan 25 mg-100 mg oral tablet) 1 Tablet(s) Oral Every Day isosorbide mononitrate (isosorbide mononitrate 30 mg oral tablet, extended release) Oral Every Morning metoprolol (metoprolol succinate 25 mg oral capsule, extended release) Oral Every Day nitroglycerin (Nitrostat 0.4 mg sublingual tablet) 1 Tablet(s) SubLINgual Every 5 minutes as needed for as needed for chest pain polyethylene glycol 3350 (MiraLax oral powder for reconstitution) 17 Gram(s) Oral Every Day rosuvastatin (rosuvastatin 40 mg oral tablet) 1 Tablet(s) Oral Every Day Take your medications faithfully. Do NOT skip medication. Do NOT stop taking medications without the direction of a physician. Carry a list of your medications with you at all times, and take this medication list with you to your first follow up visit. Report any side effects. Avoid herbal remedies unless discussed with your physician. As part of your treatment plan, your physician may have prescribed a limited course of a controlled substance. This medication may be given to help people with moderate or severe pain or for other medical conditions, but there are risks involved with treatment. Common side effects may include nausea, constipation, drowsiness, sweating, itching, dry mouth, and rash. More serious side effects may include cognitive and motor impairment, like problems with thinking, concentrating, alertness, and movement (e.g. slowed reflexes), and driving and operating heavy machinery can be dangerous. It is important for you to talk to your physician if you have these side effects or questions. These controlled substances can produce physical dependence and be habit-forming if taken for an extended period of time, which means that the body has gotten used to them and may experience withdrawal symptoms if they are abruptly stopped. Withdrawal symptoms can include runny nose, sweating, goose bumps, diarrhea, abdominal cramping, rapid heartbeat, difficulty sleeping, and nervousness. Please dispose of unused and medications per your retail pharmacy guidance. Allergies Latex (Skin rash, Blisters beneath skin, Blisters beneath skin~Skin rash) cephalosporins (Rash SOB, Rash SOB) penicillin sulfADIAZINE (Rash SOB, Rash SOB) Immunizations This Visit No Immunizations Found Education Materials Moderate Conscious Sedation, Adult, Care After These [...] you are awake and alert. ??? Take [id number] and prescription medicines only as told by [...] 05/17/2014 Document Revised: 12/29/2016 Document Reviewed: 11/15/2016 [employer] Patient Education ?? 2019 [employer]. Emergency Awareness and Preventative Care STROKE is an EMERGENCY Every Minute Counts Act FAST and Check for these signs: FACE Does the face look uneven? ARM Does one arm drift down? SPEECH Does their speech sound strange? TIME Call at any sign of stroke Stroke Risk Factors Atrial Fibrillation (irregular heartbeat) Diabetes Family history of stroke Heart Disease Heavy alcohol use High Blood Pressure High Cholesterol Physical inactivity and obesity Smoking Cigarette Smoking The facts are clear, cigarette smoking will shorten your life. Smoking can cause many illnesses along the way. As a healthcare provider, we recommend that you stop smoking. Assistance with quitting is available by contacting 0-047-XFVM-NOW. This is a free resource providing counseling, support, and referral. Or you may contact your personal physician. National Suicide Prevention Lifeline: The National Suicide Prevention Lifeline is a national network of local crisis centers that provides free and confidential emotional support to people in suicidal crisis or emotional distress 24 hours a day, 7 days a week. Don't Wait! Stop a Heart Attack Before it Starts What is a heart attack? A heart attack is damage or to a part of the heart from severely decreased or lack of blood flow to the heart. Over time, arteries can become narrow from the buildup of fat and cholesterol, which is called plaque. The plaque can rupture causing a blood clot to form. When the blood clot forms, the artery can become severely narrowed or completely blocked, causing a heart attack. Heart attack is the leading cause of in the [place]. 85% of muscle damage occurs within the first 2 hours. Delay in the recognition of heart attack symptoms increases the chances of . Know the early symptoms of a heart attack: Nausea Feeling of fullness in chest Jaw Pain Pain that travels down one or both arms Fatigue/being tired Anxiety Back Pain Chest pressure, squeezing, or discomfort Shortness of breath Sweating, or a cold sweat Feeling of impending doom There are unusual signs of a heart attack, too! Women, the elderly, and diabetics may present with atypical symptoms: Fainting/dizziness Weakness Confusion Risk Factors for a Heart Attack Some heart disease risk factors, such as age and family history, cannot be changed. Others, like smoking and lack of exercise, can be changed. Smoking High Cholesterol High Blood Pressure Family History Obesity Age Gender (Males are at higher risk) Lack of Exercise Diabetes Diet Stress Excessive Alcohol Intake If you or someone you know is experiencing the signs and symptoms of a heart attack, DON???T DELAY. Call immediately and seek help. If someone collapses, perform CPR! Do not attempt to drive if you are having symptoms of heart attack. Hands-Only CPR Why Hands-Only CPR? Hands-Only CPR has been shown to be as effective as conventional CPR for cardiac arrests that occur outside of a hospital. Survival depends on immediately receiving CPR from someone nearby. How do you perform Hands-Only CPR? There are two easy steps: Call if you see a teen or adult collapse Push hard and fast in the center of the chest at a beat of 100 beats per minute. Save a life! 4 WAYS TO GET AHEAD OF SEPSIS SEPSIS is a MEDICAL EMERGENCY. Time matters! Infections put you and your family at risk for a life-threatening condition called sepsis. Sepsis is the body's extreme response to an infection. It is life-threatening, and without timely treatment, sepsis can rapidly lead to tissue damage, organ failure, and . Sepsis happens when an infection you already have-in your skin, lungs, urinary tract or somewhere else-triggers a chain reaction throughout your body. 1 PREVENT INFECTIONS Take good care of chronic conditions. Talk to your doctor about getting the recommended vaccines. 2 PRACTICE GOOD HYGIENE Wash your hands frequently. Keep cuts or open sores clean and covered until they are healed. 3 KNOW THE SYMPTOMS Confusion or disorientation Shortness of breath High heart rate Fever, shivering, or feeling very cold Extreme pain or discomfort Clammy or sweaty skin 4 ACT FAST Get medical care IMMEDIATELY if you suspect sepsis or if you have an infection that is not getting better or is getting worse. To learn more about sepsis and how to prevent infections, visit www.cdc.gov/sepsis. Test Results Laboratory or Other Results This Visit (last charted value for your 05/25/2019 visit) Hematology 05/25/2019 10:54 AM Platelet Count: 243 K/uL -- Normal range between ( 163 and 369 ) Patient Name:NATY GRAY I have received and understand this information and was given the opportunity to ask questions. Patient/Well Puller Head Name: Patient/Well Puller Head Signature: Relationship to Patient: Clinician/Hospital Well Puller Head Signature: Date: documented in this encounter Plan of Treatment Not on file documented as of this encounter Visit Diagnoses Not on filedocumented in this encounter
== END 2025-02-20 23:59 | disposition home or self-care (01) ==
LOC: RAD 13:44
PROVIDERS: PCP Internal Medicine; Visit Provider Podiatrist
DX: S92.354D Nondisplaced fracture of fifth metatarsal bone, right foot, subsequent encounter for fracture with routine healing (principal)
CPT/HCPCS: 73630

== ENCOUNTER 2025-03-22 07:26 | Day surgery (SDC) | payer MEDICARE, BC, SELFPAY ==
[2025-03-21 09:33] VITALS: BMI 33.5
--- NOTE | 2025-03-21 13:08 | EXP.HP ---
History of Present Illness *Admission Date: 03/22/25 *Reason for visit:: Dysphagia *History of present illness: Mrs. Sahni is a 69-year-old female who is here for diagnostic/therapeutic upper endoscopy. The patient reports dysphagia postprandially and the sensation of a lump in her retrosternal region. The patient did have an EGD with dilation with me in August 2020. The patient also had a colonoscopy with me in May 2023 and had a single polyp (tubular adenoma) removed. The patient reports no heartburn, reflux, bloating, belching or dyspepsia. Her bowel movements are regular as long as she takes a combined fiber bowel regimen (MiraLAX plus Metamucil). The patient's endoscopy with me in August 2020 did show corrugation, furrowing and linear striation most consistent with eosinophilic esophagitis. Biopsies at that time showed marked increased intraepithelial eosinophils (over 100 eosinophils per high-power field in the distal esophagus and greater than 80 eosinophils per high-power field in the proximal esophagus). [facility] food allergy testing at that time showed multiple allergies to corn, egg white, peanuts, sesame seed, soybean, walnut and wheat. The patient is currently on pantoprazole [address] [facility] Disclaimer: The information contained in this section may have been updated after the patient was seen, as this information can be updated by other users. Medical History History of right breast cancer Functional dyspepsia Eosinophilic esophagitis Sleep apnea Hyperlipidemia Hypertension Diverticulitis Benign paroxysmal positional vertigo Surgical History History of lumpectomy of right breast Hx of hysterectomy History of total right hip replacement History of cataract surgery Family History Mother Asthma Cancer colon Hypertension Son Asthma Father Cancer colon Heart attack Hypertension Sister Cancer Sister Cancer Grandmother Diabetes Hypertension Stroke Social History (Updated 03/22/25 @ 08:19 by Devi Hardin RN) Smoking Status: Never smoker alcohol intake: current alcohol intake frequency: a few times a month substance use type: denies use current occupational status: retired Travel in the last 8 weeks?: None household members: spouse housing: house current occupation: retired caffeine: Yes Have you lived/traveled outside US in past 30 days?: No Contact w/someone who lives/traveled outside US past 30 days?: No Exposure to someone with infectious disease in past 14 days?: No Do you have a fever (greater than 100.4 F or 38 C)?: No Have you tested positive for COVID-19?: No Exposed to someone with COVID-19 in past 14 days?: No Do you have a sore throat?: No Do you have a cough?: No Do you have any weakness?: No Are you experiencing any nausea/vomitting?: No Do you have any diarrhea?: No Are you experiencing any unusual bleeding?: No Do you have any muscle aches/pain?: No Do you have any abdominal pain?: No Are you experiencing loss of taste or smell?: No Other Medical History Have you received the Flu Vaccine for this season: Yes Have you received the Pneumonia Vaccine: Yes Review of Systems Review of Systems Review of systems (narrative): Negative *Cardiovascular Comments: Negative *Gastrointestinal Comments: Negative *Genitourinary Comments: Negative *Musculoskeletal Comments: Negative *Neurologic Comments: Negative Meds Home Medications and Allergies Home Medications ?Medication ?Instructions ?Recorded ?Confirmed ?Type cetirizine 10 mg tablet 10 mg PO DAILY Allergy symptoms 08/29/20 03/21/25 History losartan 50 mg tablet 50 mg PO DAILY High blood pressure 08/29/20 03/21/25 History metoprolol succinate 25 mg 25 mg PO DAILY High blood pressure 08/29/20 03/21/25 History tablet,extended release 24 hr qiyyrtky-aknq-ivxw 8 mg-folic 400 1 each PO DAILY Supplement 08/29/20 03/21/25 History mcg-K 50 mcg-lutein 300 mcg tablet omega-3 fatty acids-fish oil 300 1 each PO DAILY Supplement 08/29/20 03/21/25 History mg-1,000 mg capsule polyethylene glycol 3350 17 gram 17 g PO DAILY bowel 08/29/20 03/21/25 History oral powder packet atorvastatin 80 mg tablet 80 mg PO DAILY 03/09/24 03/21/25 History clopidogrel 75 mg tablet 75 mg PO DAILY 03/09/24 03/21/25 History hydrochlorothiazide 25 mg tablet 25 mg PO DAILY 03/09/24 03/21/25 History meclizine 25 mg tablet 25 mg PO DAILY PRN Vertigo 03/09/24 03/21/25 History alendronate 70 mg tablet 70 mg PO QWEEK 01/10/25 03/21/25 History cholecalciferol (vitamin D3) 50 50 mcg PO DAILY 01/10/25 03/21/25 History mcg (2,000 unit) capsule ezetimibe 10 mg tablet (Zetia) 10 mg PO DAILY 01/10/25 03/21/25 History pantoprazole 40 mg tablet,delayed 40 mg PO DAILY 01/10/25 03/21/25 History release trazodone 50 mg tablet 50 mg PO HS 01/10/25 03/21/25 History prednisolone acetate 1 % eye 1 drp Eye-Both DAILY 03/21/25 03/21/25 History drops,suspension New Prescriptions to Start Prescriptions: Allergies Allergy/AdvReac Type Severity Reaction Status Date / Time ticagrelor (From Brilinta) Allergy Severe Hypotension Verified 03/22/25 08:32 latex Allergy Intermediate Blister Verified 03/22/25 08:32 Exam Data for Last 24 hours I & O for Last 24 hours: Intake & Output 03/18/25 03/19/25 03/20/25 03/21/25 23:59 23:59 23:59 23:59 Weight 183 lb *Routine HEENT Exam Head: Present normocephalic Eye: Present EOMI and PERRL ENT: Present mucous membranes moist *Routine Neck Exam Neck: Present supple *Routine Respiratory Exam Respiratory: Present CTA bilaterally *Routine Cardiovascular Exam Cardiovascular: Present RRR *Routine Abdominal Exam Abdominal: Present soft and normoactive bowel sounds; Absent tenderness *Routine Rectal Exam Rectal:: deferred *Routine Genitalia Exam Genitalia:: deferred *Routine Extremities Exam Extremities: Absent cyanosis, clubbing or edema *Routine Skin Exam Skin: Present warm; Absent rash *Routine Neurological Exam Neurological: Present alert and oriented X3 Assessment and Plan *Assessment and plan (1) Dysphagia: Status: Acute Category: Medical Code(s): R13.10 - Dysphagia, unspecified Plan A/P: 1. Dysphagia is the preprocedural diagnosis. The patient will be anesthetized/sedated using MAC sedation. The patient has been seen and examined. Cardiac and lung assessment prior to the examination is stable. Proceed with planned diagnostic/therapeutic upper endoscopy.
[2025-03-22 08:18] VITALS: BP 136/62; PULSE 66; RESP 16; TEMP 36.4; O2SAT 95
[2025-03-22] MEDS: LACTATED RINGERS 1000ML 1,000 ML 50 ML IV (08:32)
--- NOTE | 2025-03-22 08:39 | P.PNANES_ITS ---
[facility] Disclaimer: The information contained in this section may have been updated after the patient was seen, as this information can be updated by other users. Medical History History of right breast cancer Functional dyspepsia Eosinophilic esophagitis Sleep apnea Hyperlipidemia Hypertension Diverticulitis Benign paroxysmal positional vertigo Surgical History History of lumpectomy of right breast Hx of hysterectomy History of total right hip replacement History of cataract surgery Family History Mother Asthma Cancer colon Hypertension Son Asthma Father Cancer colon Heart attack Hypertension Sister Cancer Sister Cancer Grandmother Diabetes Hypertension Stroke Social History (Updated 03/22/25 @ 08:19 by Devi Hardin RN) Smoking Status: Never smoker alcohol intake: current alcohol intake frequency: a few times a month substance use type: denies use current occupational status: retired Travel in the last 8 weeks?: None household members: spouse housing: house current occupation: retired caffeine: Yes Have you lived/traveled outside US in past 30 days?: No Contact w/someone who lives/traveled outside US past 30 days?: No Exposure to someone with infectious disease in past 14 days?: No Do you have a fever (greater than 100.4 F or 38 C)?: No Have you tested positive for COVID-19?: No Exposed to someone with COVID-19 in past 14 days?: No Do you have a sore throat?: No Do you have a cough?: No Do you have any weakness?: No Are you experiencing any nausea/vomitting?: No Do you have any diarrhea?: No Are you experiencing any unusual bleeding?: No Do you have any muscle aches/pain?: No Do you have any abdominal pain?: No Are you experiencing loss of taste or smell?: No [facility] Anesthesia Checklist Patient Identification Patient Identification: Arm Band and Verbal (Name & ) Structural Data Admitted From: Home Planned Operative Procedure/s: EGD Consent for Planned Operative Procedure(s) Verified: Yes Verified Documents: Surgical Consent NPO Status Verified Time NPO: 00:00 Additional verifications Anesthesia Reactions: No Airway Assessment Mallampati Score:: Class II C-Spine Mobility Assessed: Yes TMJ Mobility Assessed: Yes Dentition: Good Dentition Neurological Assessment Level of Consciousness: Awake, Alert and Appropriate Hx Seizures: No Numbness or tingling in extremities: No Anesthesia Plan Anesthesia Risk discussed: Yes Anesthesia Plan: Verified ASA Class: II Anesthesia Type: MAC
--- NOTE | 2025-03-22 08:55 | HMH.PROCNOTE ---
[facility] Procedure Note Date: 03/22/25 Time: 09: Procedure Note:: Upper Endoscopy Procedure Report: Esophagogastroduodenoscopy with cold biopsies and TTS balloon dilation Endoscopost: Mic Vang II, MD Referring Physician: Jb Richards MD Date of Procedure: March 22, 2025 Equipment: Olympus GIF-1100 standard upper endoscope Sedation: MAC sedation Indications: Mrs. Sahni is a 69-year-old female who is here for diagnostic/therapeutic upper endoscopy. The patient reports dysphagia postprandially and the sensation of a lump in her retrosternal region. The patient did have an EGD with dilation with me in August 2020. The patient also had a colonoscopy with me in May 2023 and had a single polyp (tubular adenoma) removed. The patient reports no heartburn, reflux, bloating, belching or dyspepsia. Her bowel movements are regular as long as she takes a combined fiber bowel regimen (MiraLAX plus Metamucil). The patient's endoscopy with me in August 2020 did show corrugation, furrowing and linear striation most consistent with eosinophilic esophagitis. Biopsies at that time showed marked increased intraepithelial eosinophils (over 100 eosinophils per high-power field in the distal esophagus and greater than 80 eosinophils per high-power field in the proximal esophagus). RAST food allergy testing at that time showed multiple allergies to corn, egg white, peanuts, sesame seed, soybean, walnut and wheat. The patient is currently on pantoprazole 40 mg daily. Procedure: Prior to the procedure, a history and physical exam was performed, and patient's medications and allergies were reviewed. The risks, benefits and alternatives of the sedation and procedure were discussed with the patient. All questions were answered and informed consent was obtained. The patient was brought to the procedure room. Patient identification and proposed procedure were verified by the physician and the nurse. The patient was placed in a left lateral decubitus position and the scope was passed under direct vision. Throughout the procedure, the patient's blood pressure, pulse, and oxygen saturations were monitored continuously. The upper GI endoscopy was accomplished without difficulty. The patient tolerated the procedure well. Findings: The scope was passed directly into the upper esophagus and advanced to the third and fourth portion of the duodenum. A cold biopsy was taken from the second portion of the duodenum for the disaccharidase assay. The post bulbar duodenum, ampulla and duodenal bulb were normal with normal mucosa and conniventes. The scope was withdrawn through a normal duodenal bulb and pylorus into the stomach. There was some mild linear reactive gastropathy of the antrum. The body and fundus of the stomach were normal. There were a few gastric fundic polyps in the body of the stomach. Cold biopsies were taken from the antrum. Upon retroflexion there was a small 1 to 2 cm hiatal hernia. The scope was then withdrawn into the esophagus. There was a very small island and very short tongues of salmon-colored mucosa and biopsies were taken at the GE junction of these to rule out intestinal metaplasia/short segment Caceres's esophagus. There was no corrugation or furrowing. Cold biopsies were taken from the distal and proximal esophagus to rule out eosinophilic esophagitis. There were strong tertiary contractions and evidence of moderate esophageal dysmotility. There was some mild esophageal glycogen acanthosis. The entire esophagus was dilated to 60 English/20 mm with a TTS hydrostatic balloon. There was a proximal esophageal web just below the cricopharyngeus and some cricopharyngeal tightness/spasm the remainder of the esophageal mucosa was normal. Impression: 1. 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 Nonerosive GERD with moderate esophageal dysmotility and small 1 to 2 cm hiatal hernia 3. Mild glycogen acanthosis 4. Mild linear reactive gastropathy of antrum Plan: I do feel that the patient's lump is related to the web and the cricopharyngeal spasm with some globus sensation. She should benefit from the dilation. I will follow-up the biopsies. There was no clear gross evidence of eosinophilic esophagitis. I would continue PPI therapy.
[2025-03-22 09:16] VITALS: BP 118/64; PULSE 65; RESP 18; TEMP 36.2; O2SAT 95
[2025-03-22 09:26] VITALS: BP 129/68; PULSE 63; O2SAT 96
[2025-03-22 09:36] VITALS: BP 137/52; PULSE 60; O2SAT 95
[2025-03-22 09:46] VITALS: BP 130/78; PULSE 60; O2SAT 95
[2025-03-27 15:52] LABS: Interpretation Notes (.); Lactase 34.68 (>/= 14.0); Maltase 167.97 (>/= 110.0); Palatinase 12.41 (>/= 8.5); Reference Notes (.); Sucrase 30.26 (>/= 25.0)
== END 2025-03-22 09:46 | disposition home or self-care (01) ==
PROVIDERS: PCP Internal Medicine; Visit Provider Internal Medicine Gastroenterology
PROC: 0DJ08ZZ Inspection of Upper Intestinal Tract, Via Natural or Artificial Opening Endoscopic (ICD-10-PCS; CPT 43239; principal; 2025-03-22 09:00)
DX: K21.9 Gastro-esophageal reflux disease without esophagitis (principal); K29.50 Unspecified chronic gastritis without bleeding; E78.5 Hyperlipidemia, unspecified; I10 Essential (primary) hypertension; Z88.3 Allergy status to other anti-infective agents; Z79.899 Other long term (current) drug therapy
CPT/HCPCS: 43239; 43249; 82657; C1726; J2003; J2704; J7120

== ENCOUNTER 2025-04-03 11:35 | Outpatient (CLI) | payer MEDICARE, BC, SELFPAY ==
--- OUTSIDE RECORDS SUMMARY | 2025-03-23 11:30 | XMS_ITS | Encounter Summary ---
Author Organization [facility] Address [address] [place] [address] Care Team Providers Care Ventilator Specialist Name Role Phone Jb Richards MD Primary Care Provider [phone] Reason for Referral * Diagnostic Imaging (Routine) - Authorized Specialty Diagnoses / Procedures Referred By Contac benjamín Referred To Contact Diagnoses Shortness of breath ASD (atrial septal defect) Procedures Adult Transthoracic Echo Complete W/ Cont if Necessary Per Protocol [place] ECHO TTHRC R-T 2D W/WOM-MODE COMPL SPEC&COLR D [place] ECHO TRANSTHORC R-T 2D W/WO M-MODE REC F-UP/LMTD Heidi Lin MD [address] [place] [address] Phone: tel: fax: [facility] [address] [place] [phone] Phone: tel: fax: Referral ID Status Reason Start Date Expiration Date V isits Requested Visits Authorized [id number] Authorized 03/23/2025 06/22/2026 1 1 Reason for Visit * Reason Comments Sleep Apnea Pt states she is her e today for 31-90 day follow up MATEO. She is doing well on current therapy. DL is in Epic. Encounter Details Date Type Department Care Team (Late Contact Info) Description 03/23/2025 11:30 AM EDT Office Visit [facility] [address] [facility] [address] [place] [address] Heidi Lin MD [address] [place] [address] MATEO on CPAP (Primary Dx); Shortness of breath; ASD (atrial septal defect) Social History Tobacco Use Types Packs/Day Years Used Date Smoking Tobacco: Never Passive Smoke Exposure: Never Smokeless Tobacco: Never Tobacco Cessation:Counseling Given: Yes Alcohol Use Standard Drinks/Week Comments Yes 2 (1 standard drink = 0.6 oz pur e alcohol) AUDIT-C Answer Date Recorded Q1: How often do you have a drink containing alc ohol? Monthly or less 10/23/2023 Q2: How many drinks containi ng alcohol do you have on a typical day when you are drinking? 1 or 2 10/23/2023 Q3: How often do you have si x or more drinks on one occasion? Never 10/23/2023 PHQ-2 Answer Date Recorded Retired PHQ-9: Brief Depression Severity Measure Score 0 10/24/2022 Abuse Screen Answer Date Recorded Feels Unsafe at Home or Work/School no 10/23/2023 Feels Threatened by Someone no 10/08 Does Anyone Try to Keep You From Having Contact with Others or Doing Things Outside Your Home? no 10/23/2023 Physical Signs of Abuse Present no 10/23/2023 Housing Stability Answer Date Recorded Current Living Arrangements home 10/08 Potentially Unsafe Housing Conditions Not on cheryl e 10/23/2023 Disabilities Answer Date Recorded Difficulty Concentrating, Remembering or Making Decisions no 10/23/2023 Difficulty Managing Errands Independently no 10/23/2023 PHQ-2 Answer Date Recorded Patient Health Questionnaire-2 Score 0 11/25/2024 Comments No Sex and Gender Information Value Date Recorded Sex Assigned at Female 10/31/2024 10:29 AM EDT Legal Sex Female 10:18 AM EDT Gender Identity Not on file Sexual Orientation Not on file documented as of this encounter Last Filed Vital Signs Vital Sign Reading Time Taken Comments Blood Pressure 120/68 03/23/2025 10:58 AM EDT Pulse 65 03/23/2025 10:58 AM EDT Temperature - - Respiratory Rate - - Oxygen Saturation 95% 03/23/2025 10:58 AM EDT Inhaled Oxygen Concentration - - Weight 83 kg (183 lb) 03/23/2025 10:58 AM EDT Height 157.5 cm (5' 2 ) 03/23/2025 10:58 AM EDT Body Mass Index 33.47 03/23/2025 10:58 AM EDT documented in this encounter Progress Notes * Heidi Lin MD - 03/23/2025 11:30 AM EDT Images from the original note were not included. [facility] Provider Note Date: 03/23/2025 Name: Abbi Sahni : 1955 PCP: Jb Richards MD Chief Complaint Patient presents with Sleep Apnea Pt states she is here today for 31-90 day follow up MATEO. She is doing well on current therapy. DL is in LIQUITY. Subjective History of Present Illness Abbi Sahni is a 69 y.o. female with MATEO presenting with compliance visit for new machine. Has no issues and feels rested. Likes new machine. EGD yesterday 03/23/2025 Updated with no new concerns or issues. Cardiac/Sleep History 1. MATEO with baseline AHI 5 2. HTN 3. HLD 4. Mild carotid stenosis (16-49% bilaterally) 5. TIA 10/2023 6. asthma *Coronary CTA 07/06/2023-no evidence of coronary stenosis. No coronary plaque present. Agatston score is 0. *Echocardiogram 05/13/2023-LVEF 63%. Sigmoid shaped ventricular septum is present. Left ventricular diastolic function is consistent with (grade 1) impaired relaxation. RVSP is normal. Mild mitral valve regurgitation. *Nuclear stress test 05/11/23-small apical and small anteroseptal reversible defects. Because of thesmall size of these, medical therapy option should be tried first. Low to intermediate risk study. *Carotid Duplex 06/24/22-16-49% stenosis bilaterally. Vertebral flow is antegrade bilaterally. *LHC 05/25/19- Angiographically normal coronary arteries. Allergies Allergen Reactions Latex Hives Itchy and painful Ticagrelor Other (See Comments) Brilinta- made blood pressure drop to critical level Current Outpatient Medications: albuterol sulfate HFA 108 (90 Base) MCG/ACT inhaler, Inhale 2 puffs Every 4 (Four) Hours As Needed for Wheezing., Disp: 18 g, Rfl: 1 alendronate (Fosamax) 70 MG tablet, Take 1 tablet by mouth Every 7 (Seven) Days. Take with glass ofwater on an empty stomach first thing in the morning, avoiding eating and drinking anything for 30-45 minutes subsequently., Disp: 13 tablet, Rfl: 3 atorvastatin (LIPITOR) 80 MG tablet, Take 1 tablet by mouth every night at bedtime., Disp: 90 tablet, Rfl: 2 Calcium Carbonate-Vit D-Min (Calcium 600+D Plus Minerals) 600-400 MG-UNIT tablet, Take 1 tablet by mouth 2 (Two) Times a Day., Disp: 60 each, Rfl: 6 cetirizine (zyrTEC) 10 MG tablet, Take 1 tablet by mouth Daily., Disp: , Rfl: Cholecalciferol (Vitamin D3) 50 MCG (2000 UT) capsule, Take 1 capsule by mouth Daily., Disp: , Rfl: clopidogrel (PLAVIX) 75 MG tablet, Take 1 tablet by mouth Daily., Disp: 90 tablet, Rfl: 2 ezetimibe (Zetia) 10 MG tablet, Take 1 tablet by mouth Daily., Disp: 90 tablet, Rfl: 3 fluocinonide (LIDEX) 0.05 % cream, Apply 1 application topically to the appropriate area as directed 2 (Two) Times a Day., Disp: 60 g, Rfl: 1 hydroCHLOROthiazide 25 MG tablet, Take 1 tablet by mouth Daily., Disp: 90 tablet, Rfl: 2 losartan (COZAAR) 50 MG tablet, Take 1 tablet by mouth Daily., Disp: 90 tablet, Rfl: 1 meclizine (ANTIVERT) 25 MG tablet, 0.5 to 1 tablet every 8 hours as needed for vertigo, Disp: 30 tablet, Rfl: 1 METAMUCIL FIBER PO, Take by mouth., Disp: , Rfl: metoprolol succinate XL (TOPROL-XL) 25 MG 24 hr tablet, Take 1 tablet by mouth Daily., Disp: 90 tablet, Rfl: 2 Multiple Vitamins-Minerals (PRESERVISION AREDS 2 PO), Take 1 tablet by mouth Daily., Disp: , Rfl: multivitamin with minerals tablet tablet, Take 1 tablet by mouth Daily., Disp: , Rfl: nitroglycerin (NITROSTAT) 0.4 MG SL tablet, Place 1 tablet under the tongue Every 5 (Five) Minutes As Needed for Chest Pain. Take no more than 3 doses in 15 minutes., Disp: , Rfl: [place]-3 Fatty Acids (OMEGA-3 FISH OIL PO), Take by mouth., Disp: , Rfl: pantoprazole (PROTONIX) 40 MG EC tablet, Take 1 tablet by mouth Daily., Disp: 90 tablet, Rfl: 2 Polyethylene Glycol 3350 (MIRALAX PO), Take by mouth., Disp: , Rfl: traZODone (DESYREL) 50 MG tablet, 0.5-1 tablet at bedtime as needed for insomnia (Patient taking differently: Take 1 tablet by mouth Every Night. prn), Disp: 90 tablet, Rfl: 3 Past Medical History: Diagnosis Date Allergic Benign lipomatous neoplasm of skin and subcutaneous tissue of left arm Breast cancer 1998 RIGHT Cataract Chest pain, unspecified Colon polyp Diverticulosis Dysphagia, pharyngoesophageal phase Eosinophilic esophagitis Essential (primary) hypertension Fracture of ankle 06/07/2024 Fracture, foot 06/07/2024 Hx of radiation therapy 1998 15-20 TREATMENTS, RIGHT BREAST Irritable bowel syndrome Mild intermittent asthma, uncomplicated Mixed hyperlipidemia Pneumonia Precordial pain Short-term memory loss 11/19/2023 Sleep apnea 09/2019 Stroke 10/29/23 TIA (transient ischemic attack) 10/29/23 Unstable angina Vertigo Past Surgical History: Procedure Laterality Date BREAST BIOPSY BREAST LUMPECTOMY Right 1998 MALIGNANT CARDIAC CATHETERIZATION 2008 NO FLOW RESTRICTING PATHOLOGY CARDIAC CATHETERIZATION 05/30/2019 COLONOSCOPY 07/08/2018 ENDOSCOPY 03/22/2025 ESOPHAGOSCOPY / EGD 08/31/2020 Probable eosinophilic esophagitis with distal esophageal stenosis status post dilation to [address] Vang HIP SURGERY 06/17/2011 HYSTERECTOMY 1995 JOINT REPLACEMENT Right 06/17/[address] Alfred OOPHORECTOMY TRIGGER POINT INJECTION 06/2023 TUBAL ABDOMINAL LIGATION About 1989 Family History Problem Relation Age of Onset Cancer Mother Colon cancer Hypertension Mother Asthma Mother Osteoporosis Mother Cancer Father Heart attack Father 48 Coronary artery disease Father TRIPLE BYPASS SURGERIES Hyperlipidemia Father Heart disease Father Breast cancer Cousin 45 Heart disease Other Hypertension Other 2 SIBLINGS Cancer Sister Hypertension Sister Hyperlipidemia Sister Cancer Sister Hyperlipidemia Sister Ovarian cancer Neg Hx Social History Socioeconomic History Marital status: Number of children: 2 Tobacco Use Smoking status: Never Passive exposure: Never Smokeless tobacco: Never Vaping Use Vaping status: Never Used Substance and Sexual Activity Alcohol use: Yes Alcohol/week: 2.0 standard drinks of alcohol Types: 2 Glasses of wine per week Drug use: Never Sexual activity: Yes Partners: Male control/protection: None, Hysterectomy Objective Vital Signs: BP 120/68 (BP Location: Right arm, Patient Position: Sitting, Cuff Size: Adult) Pulse 65 Ht 157.5 cm (62 ) Wt 83 kg (183 lb) SpO2 95% BMI 33.47 kg/m?? Estimated body mass index is 33.47 kg/m?? as calculated from the following: Height as of this encounter: 157.5 cm (62 ). Weight as of this encounter: 83 kg (183 lb). Physical Exam Constitutional: Appearance: Normal appearance. She is well-developed. HENT: Head: Normocephalic and atraumatic. Eyes: General: No scleral icterus. Pupils: Pupils are equal, round, and reactive to light. Cardiovascular: Rate and Rhythm: Normal rate and regular rhythm. Heart sounds: Normal heart sounds. No murmur heard. Pulmonary: Breath sounds: Normal breath sounds. No wheezing or rhonchi. Musculoskeletal: Right lower leg: No edema. Left lower leg: No edema. Skin: Capillary Refill: Capillary refill takes less than 2 seconds. Coloration: Skin is not cyanotic. Nails: There is no clubbing. Neurological: Mental Status: She is alert and oriented to person, place, and time. Motor: No weakness. Gait: Gait normal. Psychiatric: Mood and Affect: Mood normal. Behavior: Behavior is cooperative. Thought Content: Thought content normal. Assessment and Plan ASSESSMENTS AND ORDERS Diagnoses and all orders for this visit: 1. MATEO on CPAP (Primary) 2. Shortness of breath - Adult Transthoracic Echo Complete W/ Cont if Necessary Per Protocol; Future 3. ASD (atrial septal defect) - Adult Transthoracic Echo Complete W/ Cont if Necessary Per Protocol; Future PLAN -Pap DL reviewed, good compliance and control. Benefiting from pap therapy and plan to continue. -SOA stable, can't get a deep breath sometimes. Sounds pulmonary. -will monitor pulmonary pressures on echo with history of small ASD, likely will not need intervention, stay on plavix for emobolic stroke prevention Follow Up Return in about 6 months (around 09/23/2025) for Next scheduled follow up, with testing at that appointment. Jalen Lin MD Cardiology and Sleep [facility] 03/23/2025 Please note that this explicitly excludes time spent on other separate billable services such as performing procedures or test interpretation, when applicable. This note was created using dictation software which occasionally transcribes nonsensical phrases. Please contact the provider if any clarification is needed. documented in this encounter Plan of Treatment Upcoming Encounters Date Type Department Care Team (Late st Contact Info) Description 05/19/2025 10:50 AM EDT Office Visit [facility] [address] [facility] [address] [place] [address] Yannick Aflred MD [address] [facility] [address] [place] [address] 05/26/2025 8:30 AM EDT Office Visit [facility] PRIMARY CARE [address] [place] [address] [place] [address] Jb Richards MD [address] [place] [address] [place] [address] 08/24/2025 10:30 AM EST Office Visit [facility] NEUROLOGY [address] [facility] [address] [place] [address] Michelle Johnson, CLASSROOM INSTRUCTOR [address] [facility] [address] [address] 09/19/2025 10:00 AM EST Appointment [facility]VASIVE [facility] [place] [address] [facility] [address] [place] [address] 09/28/2025 10:30 AM EST Office Visit [facility] CARDIOLOG[facility] [address] [facility] [address] [address] [place] [address] Heidi Lin MD [address] [place] [address] 01/30/2026 11:30 AM EDT Office Visit [facility] UROLOGY [address] [facility] [address] [place] [address] Aruna Walden APRN [address] [facility] [address] [place] [address] Scheduled Orders Name Type Priority Associated Diagnoses Order Schedule Adult Transthoracic Echo Complete W/ Cont if Necessary Per Protocol Echocardiography Routine Shortness of breath ASD (atrial septal defect) Expected: 09/19/2025, Expires: 03/23/2026 documented as of this encounter Visit Diagnoses Diagnosis MATEO on CPAP- Primary Shortness of breath ASD (atrial septal defect) Ostium secundum type atrial septal defect documented in this encounter Care Teams Ventilator Specialist Relationship Specialty Start Date End Date Jb Richards MD [address] [place] [address] PCP - General Internal Medicine 05/14/22 documented as of this encounter
--- NOTE | 2025-04-03 11:37 | XR_ITS ---
FINAL REPORT CLINICAL HISTORY: right foot fracture COMPARISON: 02/20/2025 FINDINGS: AP, oblique and lateral views of the right foot were obtained. There is a new fracture of the shaft of the fifth proximal phalanx. The joint spaces are preserved. Soft tissues are unremarkable. IMPRESSION: New fracture of the shaft of the fifth proximal phalanx. Reviewed, Interpreted and Dictated by Juanis Woody MD Transcribed by Daylin Giron Authenticated and [facility]
--- OUTSIDE RECORDS SUMMARY | 2025-04-03 12:11 | XMS_ITS | Encounter Summary ---
Author Organization [facility] Address [address] [place] [address] Care Team Providers Care Data Governance Consultant Name Role Phone Jb Richards MD Primary Care Provider [phone] Encounter Details Date Type Department Care Team (Latest Contact Info) Description 03/23/2025 Travel Social History Tobacco Use Types Packs/Day Years Used Date Smoking Tobacco: Never Passive Smoke Exposure: Never Smokeless Tobacco: Never Alcohol Use Standard Drinks/Week Comments Yes 2 [...] on file documented as of this encounter Plan of Treatment Upcoming Encounters Date Type Department Care Team (Late st Contact Info) Description 05/19/2025 10:50 AM EDT Office Visit [facility] SP[facility]TS MEDICINE [address] [facility] [address] [place] [phone] Yannick Alfred MD [address] [facility] [address] [place] [address] 05/26/2025 8:30 AM EDT Office Visit [facility] PRIMARY CARE [address] [place] [address] [place] [id number] Jb Richards MD [address] [place] [address] [place] [address] 08/24/2025 10:30 AM EST Office Visit [facility] NEUROLOG[facility] [address] [facility] [address] [place] [address] Michelle Johnson APRN [address] [facility] [address] [address] 09/19/2025 10:00 AM EST Appointment [facility] [place] [address] [facility] [address] [place] [phone] 09/28/2025 10:30 AM EST Office Visit [facility]ARDIOLOG[facility] [address] [facility] [address] [place] [address] Heidi Lin MD [address] [place] [address] [place] [address] 01/30/2026 11:30 AM EDT Office Visit [facility] UROLOGY [address] [facility] [address] [place] [address] Aruna Walden, DANETTE [address] [facility] [address] [place], [place] [id number] documented as of this encounter Visit Diagnoses Not on filedocumented in this encounter Care Teams Data Governance Consultant Relationship Specialty Start Date End Date Jb Richards MD [address] [place] [address] [place] [address] PCP - General Internal Medicine 05/14/22 documented as of this encounter
--- OUTSIDE RECORDS SUMMARY | 2025-04-03 12:11 | XMS_ITS | Clinical Summary ---
Author Organization [facility] Address [address] [place], [place] [id number] Care Team Providers Care Patient Account Analyst Name Role Phone Jb Richards MD Primary Care Provider [phone] Allergies Active Allergy Reactions Criticality Noted Date [...] Health Maintenance Due Date Last Done Comments [facility]-Depression Screening 1953 [facility]-Infant/Child/Adol SDOH Screenings 1953 [facility]- SDOH Screenings 1971 [facility]-Adult SDOH Screenings 1971 CT Colonography 1998 Colonoscopy 1998 FIT-DNA 1998 FIT 1998 FOBT 1998 Sigmoidoscopy 1998 [facility]-Colorectal Cancer Screening 1998 [facility]-Breast Cancer Screening 09/04/202208/11, 07/21/2019, 07/09/2018, Additional history exists [facility]-Medicare Annual Wellness (AWV) 10/25/2023 10/24/2022 [facility]-DTaP,Tdap,and Td Vaccines (2 - Td or Tdap) 04/03/2024 04/03/2014 [facility]-WSAUB-16 Vaccine (4 - season) 2024 07/01/2021, 11/14/2020, [...] this topic Insurance MEDICARE ANTHEM Care Teams Patient Account Analyst Relationship Specialty Start Date End Date Jb Richards MD [address] [place] [address] PCP - General 07/06/23
--- OUTSIDE RECORDS SUMMARY | 2025-04-03 12:11 | XMS_ITS | Encounter Summary ---
Author Organization [employer] ([place], [place], [place], [place]) Address [address] [place] [address] Care Team Providers Care Facilities Maintenance Engineer Name Role Phone Unavailable Primary Care Provider Unavailabl e Encounter Details Date Type Department Care Team (Late st Contact Info) Description 05/25/2019 Transcribed Document [facility] Cardiology [address] [place] [address] Yannick Anderson MD [address] [facility] [address] [place] [id number] Social History Tobacco Use Types Packs/Day Years [...] MD-CAR Basic Information PCP: Leon Richards MD Negative Assembler: Debora Lanier MD Chief Complaint chest pain [...] Problems HTN - Hypertension / SNOMED CT 1608385735 / Confirmed HLD - Hyperlipidemia / SNOMED CT 620111455 / Confirmed Asthma / SNOMED CT 264269564 / Confirmed Breast CA / SNOMED CT 070312624 / Confirmed right breast 1998 At risk for sleep apnea / IMO [id number] / Confirmed, No qualifying data available Histories No education data available. Social & Psychosocial Habits No Data Available Past Medical History: Active HLD - Hyperlipidemia (952823195) HTN - Hypertension (3337244685) Family History: Coronary heart disease Father: onset [...] of motion, Normal strength. Integumentary: Warm, Dry, Walsh. Neurologic: Alert, Oriented. Psychiatric: Cooperative. Review / [...]
--- OUTSIDE RECORDS SUMMARY | 2025-04-03 12:11 | XMS_ITS | Encounter Summary ---
Author Organization [employer] ([place], [place], [place], [place]) Address [address] [place] [address] Care Team Providers Care Plumber Supervisor Name Role Phone Unavailable Primary Care Provider Unavailabl e Encounter Details Date Type Department Care Team (Late st Contact Info) Description 05/25/2019 Transcribed Document [facility] [place] [address] [place] [address] ProviderAnupama MD [address] [place], [place] [id number] Social History Tobacco Use Types Packs/Day Years [...]
--- OUTSIDE RECORDS SUMMARY | 2025-04-03 12:11 | XMS_ITS | Encounter Summary ---
Author Organization [facility] Address [address] [place] [address] Care Team Providers Care Pipe Buffer Name Role Phone Jb Richards MD Primary Care Provider [phone] Encounter Details Date Type Department Care Team (Late st Contact Info) Description 02/01/2025 Results Follow-Up [facility] UROLOGY [address] [place] [address] Aruna Walden APRN [address] [facility] [address] [place] [address] Social History Tobacco Use Types Packs/Day Years [...] Description 05/19/2025 10:50 AM EDT Office Visit [facility] ORTHOPEDICS & SPORTS MEDICINE [address] [facility] [address] [place] [phone] Yannick Alfred MD [address] [facility] [address] [place] [address] 05/26/2025 8:30 AM EDT Office Visit [facility] PRIMARY CARE [address] [place] [address] [place] [phone] Jb Richards MD [address] [place] [address] [place] [address] 08/24/2025 10:30 AM EST Office Visit [facility] NEUROLOGY [address] [facility] [address] [address] [place] [address] Michelle Johnson, ADULT PROBATION OFFICER [address] [facility] [address] [address] 09/19/2025 10:00 AM EST Appointment [facility] [place] [address] [facility] [address] [place] [address] 09/28/2025 10:30 AM EST Office Visit [facility] CARDIOLOGY [address] [facility] [address] [place] [address] Heidi Lin MD [address] [place] [address] 01/30/2026 11:30 AM EDT Office Visit [facility] UROLOGY [address] [place] [address] [address] [place] [address] Aruna Walden APRN [address] [facility] [address] [place] [address] documented as of this encounter Visit Diagnoses Not on filedocumented in this encounter Care Teams Pipe Buffer Relationship Specialty Start Date End Date Jb Richards MD [address] [address] K[place]UR[place] BLACKMON [id number] PCP - General Internal Medicine 05/14/22 documented as of this encounter
--- OUTSIDE RECORDS SUMMARY | 2025-04-03 12:11 | XMS_ITS | Clinical Summary ---
Author Organization [facility] Address [address] [place] [id number] Care Team Providers Care Chemistry Technical Officer Name Role Phone Jb Richards MD Primary Care Provider [phone] Allergies Active Allergy Reactions Criticality Noted Date Comments Latex Hives High 06/17/2021 Itchy and painful Ticagrelor Other (See Comments) High 06/17/2021 Brilinta- made blood pressure drop to critical level Medications Polyethylene Glycol 3350 (MIRALAX PO) Take by mouth. Ac tive cetirizine (zyrTEC) 10 MG tablet Take 1 tablet by mouth Daily. Active multivitamin with minerals tablet tablet Take 1 tablet by mouth Daily. Active Eureka-3 Fatty Acids (OMEGA-3 FISH OIL PO) Take by mouth. Ac tive nitroglycerin (NITROSTAT) 0.[address] 1 tablet under the tongue Every 5 (Five) Minutes As Needed for Chest Pain. Take no more than 3 doses in 15 minutes. Active albuterol sulfate HFA 108 (90 Base) MCG/ACT inhalerIndications :Mild intermittent intrinsic asthma without status asthmaticus without complication Inhale 2 puffs Every 4 (Four) Hours As Needed for Wheezing. 18 g 1 11/26/19 23 Active fluocinonide (LIDEX) 0.05 % creamIndications:H and dermatitis Apply 1 application topically to the appropriate area as directed 2 (Two) Times a Day. 60 g 1 04/30/20 23 Active METAMUCIL FIBER PO Take by mouth. Active meclizine (ANTIVERT) 25 MG tabletIndications: Benign paroxysmal positional vertigo of right ear 0.5 to 1 tablet every 8 hours as needed for vertigo 30 tablet 1 01/26/20 24 Active losartan (COZAAR) 50 MG tabletIndications: Hypertension, unspecified type Take 1 tablet by mouth Daily. 90 tablet 1 03/31/20 24 Active clopidogrel (PLAVIX) 75 MG tabletIndications: History of TIA (transient ischemic attack) Take 1 tablet by mouth Daily. 90 tablet 2 07/29/20 24 Active metoprolol succinate XL (TOPROL-XL) 25 MG 24 hr tabletIndications: Hypertension, unspecified type Take 1 tablet by mouth Daily. 90 tablet 2 07/29/20 24 Active hydroCHLOROthiazid e 25 MG tablet Take 1 tablet by mouth Daily. 90 tablet 2 07/29/20 24 Active pantoprazole (PROTONIX) 40 MG EC tabletIndications: Eosinophilic esophagitis Take 1 tablet by mouth Daily. 90 tablet 2 07/29/20 24 Active atorvastatin (LIPITOR) 80 MG tablet Take 1 tablet by mouth every night at bedtime. 90 tablet 2 07/29/20 24 Active traZODone (DESYREL) 50 MG tabletIndications: Primary insomnia 0.5-1 tablet at bedtime as needed for insomnia 90 tablet 3 11/26/19 25 Active Additional Information Patient taking differently: 50 mg Oral Nightly, prn, Informant: Self, Reported on 03/23/2025 ezetimibe (Zetia) 10 MG tabletIndications: Mixed hyperlipidemia Take 1 tablet by mouth Daily. 90 tablet 3 11/29/19 25 Active alendronate (Fosamax) 70 MG tabletIndications: Age-related osteoporosis without current pathological fracture Take 1 tablet by mouth Every 7 (Seven) Days. Take with glass of water on an empty stomach first thing in the morning, avoiding eating and drinking anything for 30-45 minutes subsequently. 13 tablet 3 12/01/19 25 Active Calcium Carbonate-Vit D-Min (Calcium 600+D Plus Minerals) 600-400 MG-UNIT tablet Take 1 tablet by mouth 2 (Two) Times a Day. 60 each 6 12/13/19 25 Active Cholecalciferol (Vitamin D3) 50 MCG (1999 UT) capsule Take 1 capsule by mouth Daily. 12/18/19 25 Active Multiple Vitamins-Minerals (PRESERVISION AREDS 2 PO) Take 1 tablet by mouth Daily. Active Active Problems Problem Noted Date Diagnosed Date Shortness of breath 03/23/2025 ASD (atrial septal defect) 03/23/2025 Acute diverticulitis 02/01/2025 Assessment & Plan (02/01/2025 1:09 PM EDT): 1 week of gradually progressive nonsevere left lower quadrant pain with no evidence of an acute abdomen, no organomegaly masses, colonoscopy from 05/2023 revealing left-sided diverticulosis, suspected clinically she is having a mild case of an acute diverticulitis. Treat with Augmentin x 7 days, pushing fluids, ensuring she is maintaining good bowel function. Advised if pain not improving over that time interval or for any significant worsening, in that scenario advised to go to the ER for further evaluation and anticipated imaging. Assuming her pain resolves then imaging will not be performed at this time given she has had a relatively recent colonoscopy Medicare annual wellness visit, subsequent 11/25 Assessment & Plan (11/25/2024 12:42 PM EDT): Primary insomnia 11/25/2024 Assessment & Plan (11/25/2024 12:42 PM EDT): Relates longstanding primary insomnia primarily delayed sleep initiation. Has tried hxyn-[id number] products including melatonin without benefit. No secondary triggers identified. Initiate trial of trazodone 50 mg at 0.5-1 tablet nightly as needed. Orders: traZODone (DESYREL) 50 MG tablet; 0.5-1 tablet at bedtime as needed for insomnia Mild intermittent asthma with acute exacerbation 11/25/2024 Assessment & Plan (11/25/2024 12:42 PM EDT): Recent pneumonia diagnosed by [facility] treated within last couple weeks did cause asthma trigger which is improving. Continue use of her albuterol inhaler as needed. Infected sebaceous cyst 10/31/2024 Assessment & Plan (10/31/2024 7:15 PM EDT): 3 weeks history of spontaneous swelling redness warmth and tenderness development of a chronic sebaceous cyst on left anterior shoulder, clearly infected, having had some spontaneous discharge, with I&D performed revealing moderate amount of infected sebaceous material. Treat with Bactrim, keeping wound clean with soap and water and bandaged. Advise if any ongoing related concerns Acute bronchitis 11/23/2023 Assessment & Plan (11/23/2023 12:41 PM EDT): Patient having significant acute conjunctivitis with secondary reactive airways, again reasonable probability this is viral in etiology, but given persistence and some progression of her symptoms in the last 6 to 7 days, will treat for atypical bacterial pathogens with azithromycin. Advise if not improving Reactive airways dysfunction syndrome 11/23/2023 Assessment & Plan (11/23/2023 12:42 PM EDT): Diffuse reactive airway secondary to her respiratory infection. Add prednisone, use previously prescribed albuterol inhaler, and Bromfed-DM for symptom relief. Advise if not improving. History of TIA (transient ischemic attack) 11/18 Assessment & Plan (11/25/2024 12:42 PM EDT): Status post TIA manifested by some transient confusion and right-sided weakness in 10/2023, this having occurred on aspirin thus being maintained on Plavix along with risk factor modification including antihypertensive control and atorvastatin. Asymptomatic subsequently. Assessment & Plan (05/17/2024 3:46 PM EDT): History of suspected TIA 10/22/2023 with right-sided weakness and confusion, transient, subsequent resolution, workup revealing small PFO left to right on her echocardiogram, MRI of the head unremarkable, venous duplex studies negative for DVT, and unremarkable 21-day Holter monitor by Dr. Delia Lin revealing no evidence of dysrhythmia or A-fib. She continues on Plavix 75 mg daily after taking dual antiplatelet therapy x 3 weeks per neurology recommendation, the aspirin rather than Plavix subsequently having been discontinued as she developed her TIA symptoms while taking aspirin. Continue risk factor modification including blood pressure and cholesterol control, and monitoring her prediabetes closely. Assessment & Plan (11/19/2023 6:37 PM EDT): History of suspected TIA 10/22/2023 with right-sided weakness and confusion, transient, subsequent resolution, workup thus far revealing small PFO left to right and echocardiogram, MRI of the head unremarkable, venous duplex studies negative for DVT, ongoing Holter monitor by Dr. Delia Lin to rule out any occult dysrhythmia such as A-fib or flutter. She continues on Plavix 75 mg daily after taking dual antiplatelet therapy x 3 weeks per neurology recommendation, the aspirin rather than Plavix subsequently having been discontinued as she developed her TIA symptoms while taking aspirin. Continue risk factor modification including blood pressure and cholesterol control, and monitoring her prediabetes closely. Encounter for general adult medical examination with abnormal findings 11/19/2023 Assessment & Plan (11/25/2024 12:42 PM EDT): 69-year-old female presenting for Medicare wellness visit and complete physical. Health maintenance includes colonoscopy from 05/[address] Vang, 5-year follow-up recommended, mammogram screen normal from 09/30/2024, DEXA scan from 01/2023 worse referral for repeat testing given, status post RICCI in 1994 for menorrhagia, no indication for Pap smear testing, COVID-19 vaccine given today with patient to obtain RSV and consider Tdap through pharmacy, EKG today unremarkable, updating screening labs. Follow-up in 6 months to review her prediabetes, and as needed in the interim Orders: TSH Rfx On Abnormal To Free T4; Future Comprehensive Metabolic Panel; Future Lipid Panel; Future Vitamin D,25-Hydroxy; Future Urinalysis With Culture If Indicated -; Future POC Glycosylated Hemoglobin (Hb A1C) POC Glucose, Blood POC Albumin/Creatinine Ratio Urine DEXA Bone Density Axial; Future Ambulatory Referral to Gastroenterology COVID-19 (Pfizer) 12yrs+ (COMIRNATY) Assessment & Plan (11/19/2023 6:35 PM EDT): Pleasant 68-year-old female presenting for Medicare wellness visit and complete physical, health issues being addressed as detailed below, health maintenance includes colonoscopy current from 05/2023 with 5-year follow-up recommended, mammogram current from 09/2023 with 1 year follow-up recommended, status post RICCI remotely for benign disease not requiring ongoing Pap smear screening, DEXA scan from 01/2023 normal with plan to repeat in 2 to 3 years, EKG from 10/2023 normal, recommended obtaining COVID-19 and RSV vaccines outside the office, full laboratory testing recently performed during hospitalization in 10/2023 with previous UA normal from 04/2023, urine microalbumin updated today and normal. Mild obesity 11/19/2023 Assessment & Plan (11/25/2024 12:42 PM EDT): Pursue healthy lifestyle diet and exercise. Unable to afford GLP-1 agonist. Assessment & Plan (05/17/2024 3:44 PM EDT): Longstanding struggle with obesity, currently eating healthy diet with some physical activities. We did discuss treatment options of which she is interested, specifically GLP-1 agonist, discussing mechanism of action, contraindications and potential side effects. She would like to pursue, will prescribe Wegovy 0.25 mg subcu weekly, tentative plan to follow-up in 1 month anticipating further titration as tolerated. Continue healthy lifestyle efforts otherwise. Assessment & Plan (11/19/2023 6:32 PM EDT): Encourage efforts at healthy lifestyle change with regular physical activity and healthy diet. Viral URI with cough 11/19/2023 Assessment & Plan (05/17/2024 3:43 PM EDT): Mild URI type symptoms with some associated mild conjunctivitis, symptomatic treatment being pursued. She does have old Polytrim eyedrops to use as needed primarily for lubrication. Does not appear acutely ill. Assessment & Plan (11/23/2023 12:40 PM EDT): Patient having symptoms for the last 6 or 7 days with nasal congestion drainage cough associated with conjunctivitis, the conjunctivitis symptoms improved but having persistence and slight progression of her other symptoms. Still reasonable likelihood that this could still be viral, but given lack of improvement, will cover for atypical bacterial pathogens with a Z-Anil. Also add Bromfed-DM for symptom relief along with plenty of fluids. Advise if not improving. Assessment & Plan (11/19/2023 6:31 PM EDT): Acute viral URI, treating symptomatically with fluids, OTC cough and cold meds, and tincture of time. If not improving over the next 5 to 7 days or for any significant worsening in the interim, advise accordingly. Acute conjunctivitis of both eyes 11/19/2023 Assessment & Plan (11/23/2023 12:41 PM EDT): Conjunctivitis improved since last week with use of Polytrim drops. Use as needed. Assessment & Plan (11/19/2023 6:32 PM EDT): Bilateral factious conjunctivitis, likely viral in context with her URI, but will treat empirically with Polytrim eyedrops along with warm moist compresses. Advise if not improving. Short-term memory loss 11/19/2023 Assessment & Plan (11/19/2023 6:38 PM EDT): Describes stable short-term memory loss which does not appear to be concerning, limited, not at all affecting her ADLs. If becomes concerning for progression, advise accordingly at which point we will refer back to neurology, noting she is already scheduled for follow-up with surgical consultant in 02/2024. Benign paroxysmal positional vertigo of right ea r 11/19/2023 Assessment & Plan (01/26/2024 5:22 PM EDT): Previous documented history of right-sided vertigo consistent with BPPV, most recently having had a flareup yesterday intermittently extending into today, previously having had a similar discussion in 11/2023 regarding similar symptoms and this suspected diagnosis. No concern regarding any focal neurological abnormality otherwise, does not have any history or documentation that would suggest presyncope with orthostatic blood pressure check today unremarkable. I discussed the pathophysiology of this disorder as I have in the past, positive Reid-Hallpike on the right, discussing Abby maneuver technique with information handout given on this disorder. Treat with meclizine as needed, avoiding abrupt positional changes when present. Advise if not having a pattern of improvement. Assessment & Plan (11/19/2023 6:31 PM EDT): Patient gives a classic history of intermittent right-sided vertigo consistent with BPPV, rarely occurring, avoiding abrupt positional changes. May use OTC meclizine as needed. If becomes more problematic, we will then discuss Abby maneuver for management. Right sided weakness 10/28/2023 Assessment & Plan (10/28/2023 2:48 PM EDT): Probable secondary to TIA, less likely migraine syndrome. Refer to above. Clinically resolved. On dual antiplatelet therapy. To follow-up with neurology. Primary hypertension 10/28/2023 Assessment & Plan (02/01/2025 1:10 PM EDT): Maintaining excellent blood pressure control acutely as well as by history chronically taking losartan 50 mg daily, HCTZ 25 mg daily, and metoprolol XL 25 mg daily. Continue current regimen with monitoring. Assessment & Plan (01/26/2024 5:20 PM EDT): Patient complaint of dizziness , having documented on her own good blood pressure per her own documentation taking losartan 50 mg daily, HCTZ 25 mg daily, and metoprolol XL 25 mg daily. Does not appear to be volume depleted. No evidence of dehydration on orthostasis testing. Continue current regimen with monitoring. Assessment & Plan (10/28/2023 2:45 PM EDT): Very satisfactory blood pressure control acutely as well as chronically taking losartan 25 mg daily, HCTZ 25 mg daily, metoprolol XL 25 mg daily, with added benefit taking Imdur 30 mg daily. Continue current regimen with monitoring. Callus of foot 10/28/2023 Assessment & Plan (10/28/2023 2:47 PM EDT): Callus of the right medial fifth toe. Discussed treatment with pads, filing, and keep follow-up with podiatry. Trigger ring finger of right hand 10/28/2023 Trigger middle finger of left hand 10/28/2023 Right sided numbness 10/22/2023 Assessment & Plan (10/28/2023 2:48 PM EDT): Suspect secondary to TIA, transient symptoms lasting no more than 24 hours prompting recent hospitalization. She continues risk factor modification including addition of dual antiplatelet therapy. Follow-up with neurology. Abnormal nuclear stress test 05/21/2023 Assessment & Plan (11/25/2024 12:42 PM EDT): No clear diagnosis of coronary artery disease. Has history of abnormal stress test, with subsequent normal left heart catheterization in 05/2019, negative coronary CTA in 06/2023, history of carotid Dopplers revealed less than 49% bilaterally, echocardiogram in 05/2023 with small PFO, mild MR otherwise unremarkable, Holter monitor x 21 days in 05/2023 unremarkable. EKG today unremarkable. Continue risk factor modification. Orders: ECG 12 Lead Assessment & Plan (11/19/2023 6:30 PM EDT): Patient with abnormal nuclear stress testing 05/2023 revealing mild inferolateral defect, subsequent coronary CTA 06/2023 with no evidence of any carotid lesions, Agatston score 0, unlikely has any true cardiac pathology. Previous LHC in 05/28 normal. Echocardiogram most recently in 10/2023 with small PFO left to right, otherwise unremarkable with preserved EF. She does take Imdur 30 mg daily presumably prescribed prior to her full cardiac workup, and of asked her to discuss with her photostat operator helper, Dr. Delia Lin, whether or not this would be a necessary ongoing medication. Assessment & Plan (10/01/2023 3:48 PM EST): She completed a coronary CTA 07/06/2023 that revealed no evidence of coronary stenosis. No coronary plaque present. Agatston score is 0. Precordial chest pain 05/05/2023 Assessment & Plan (05/21/2023 10:16 AM EDT): Nuclear stress test from 05/11/23 revealed small apical and small anteroseptal reversible defects. Low to intermediate risk study. We discussed further cardiac testing including left heart cath and coronary CTA - Proceed with coronary CTA at - Isosorbide 30 mg once daily Assessment & Plan (05/05/2023 11:32 AM EDT): Intermittent episodes of chest tightness that occur randomly and are increasing in frequency. - Nuclear stress test and echocardiogram for further evaluation. Patient has chronic back, hip and knee pain and is unable to walk on a treadmill. She will need a nuclear stress test. Hand dermatitis 04/30/2023 Chest pain 04/30/2023 Screening for thyroid disorder 04/30/2023 Assessment & Plan (11/25/2024 12:42 PM EDT): Orders: TSH Rfx On Abnormal To Free T4; Future Vitamin D deficiency 04/30/2023 Assessment & Plan (11/25/2024 12:42 PM EDT): Taking vitamin D 2000 IU daily. Update level. Orders: Vitamin D,25-Hydroxy; Future Paresthesia of right leg 04/30/2023 Callus between toes 04/30/2023 Influenza vaccine administered 04/30/2023 Assessment & Plan (05/17/2024 3:51 PM EDT): Patient does not appear to be acutely ill despite her URI symptoms, and preferred to obtain her flu vaccine today rather than waiting, thus administered. Asymptomatic microscopic hematuria 04/30/2023 Overview (11/19/2023): Negative workup [address] scan and cystoscopy. Assessment & Plan (11/25/2024 12:42 PM EDT): Negative workup [place] [address] scan and cystoscopy. She does follow-up with him in the near future. Updating urinalysis. Assessment & Plan (11/19/2023 6:34 PM EDT): Previous negative workup [address] scan and cystoscopy. Patient to follow-up with urology, Dr. Pappas Postmenopausal 01/26/2023 Assessment & Plan (11/25/2024 12:42 PM EDT): Obtain DEXA scan. Orders: DEXA Bone Density Axial; Future MATEO on CPAP 10/24/2022 Overview (11/19/2023): Patient on PAP therapy with good control and compliance, most recent AHI 1.7, utilizing a DreamStation [address] Delia Lin of cardiology/sleep medicine. Assessment & Plan (11/25/2024 12:42 PM EDT): Compliant with CPAP followed by Dr. Delia Lin. Assessment & Plan (08/25/2024 6:23 PM EST): Good compliance and control. Benefiting from PAP therapy and plan to continue. Assessment & Plan (11/19/2023 6:39 PM EDT): Patient on PAP therapy with good control and compliance, most recent AHI 1.7, utilizing a DreamStation [address] Delia Lin of cardiology/sleep medicine. Assessment & Plan (10/01/2023 3:48 PM EST): Patient is doing very well on PAP therapy with good control and compliance. Download reviewed and interpreted today. Compliance is 100%, AHI is 1.7. Airflow is comfortable. Denies excessive daytime sleepiness or fatigue. She currently has a DreamStation 2 device and is requesting a new machine. - Order for new ResMed device, continue current settings. - Follow-up in 2 months for compliance visit Assessment & Plan (01/13/2023 9:26 AM EDT): Patient is doing well on PAP therapy with good control. Device download reviewed and interpreted today. There were only 3 days recorded on download because patient was [place] a trip [place] and did not take her CPAP machine with her. She normally wears it every night. She uses a nasal mask and does well with that. Airflow is comfortable. She denies excessive daytime sleepiness or fatigue. She has a replacement DreamStation 2 device. We will continue PAP therapy at current settings. Follow-up in 1 year. Sensory neuropathy 10/24/2022 Macular degeneration of both eyes 10/24/2022 Assessment & Plan (11/25/2024 12:42 PM EDT): Keep follow-up with ophthalmology. Assessment & Plan (11/19/2023 6:32 PM EDT): Follows with ophthalmology. Diverticulosis 10/24/2022 Chronic constipation 10/24/2022 Assessment & Plan (11/19/2023 6:33 PM EDT): Reports doing well with MiraLAX. Colonoscopy current from 05/2023. Stasis edema of both lower extremities Intrinsic asthma without status asthmaticus 10/08 Seasonal allergic rhinitis due to pollen 023 Assessment & Plan (11/25/2024 12:42 PM EDT): Taking Zyrtec 10 mg daily as needed. Advised to add Flonase as needed Chronic right shoulder pain 10/24/2022 Prediabetes 10/23/2022 Overview (05/17/2024): Hemoglobin A1c 6.0% in 10/2023, 5.8% in 05/2024 Assessment & Plan (11/25/2024 12:42 PM EDT): Hemoglobin A1c today 5.9% versus 5.8% in 05/2024, UACR normal. Pursue healthy lifestyle with diet and exercise Orders: Comprehensive Metabolic Panel; Future POC Glycosylated Hemoglobin (Hb A1C) POC Glucose, Blood POC Albumin/Creatinine Ratio Urine Assessment & Plan (05/17/2024 3:49 PM EDT): Excellent glycemic control today on diet with hemoglobin A1c today 5.8% versus 6.0% in 10/2023. Continue healthy lifestyle efforts. Assessment & Plan (11/19/2023 6:31 PM EDT): Hemoglobin A1c 6.0% in 10/2023. Pursue efforts at healthy lifestyle with appropriate diet and regular exercise. Repeat testing in 6 months. Urine microalbumin today was unremarkable. Microhematuria 10/23/2022 Overview (10/23/2022): Negative cystoscopy, negative CT scan per hematuria protocol 06/2022 History of breast cancer 05/06/2022 Assessment & Plan (11/25/2024 12:42 PM EDT): Status post right lumpectomy and radiation therapy in 1997. Mammogram screening current from 09/30/2024. Assessment & Plan (11/19/2023 6:35 PM EDT): Status post remote right breast cancer status postlumpectomy and postop radiation therapy. Most recent bilateral screening mammogram normal from 09/2023. Update yearly Benign lipomatous neoplasm o f skin and subcutaneous tissue of left arm 05/05/2022 Dysphagia, pharyngoesophageal phase 05/05/2022 Eosinophilic esophagitis 05/05/2022 Overview (11/19/2023): EGD last in 08/[address] Vang, currently taking Prilosec 40 mg daily, which will be switched over to pantoprazole 40 mg daily given concomitant Plavix therapy. I have asked patient to schedule follow-up visit with Dr. Vang of GI to discuss whether or not she would require a 3-year surveillance EGD given her diagnosis, albeit noting she is asymptomatic at this time with PPI therapy. Assessment & Plan (11/25/2024 12:42 PM EDT): Reported history of eosinophilic esophagitis, having had EGD by Dr. Vang sometime in the last several years. Asymptomatic taking pantoprazole 40 mg daily. Refer back to Dr. Vang for reevaluation. Orders: Ambulatory Referral to Gastroenterology Mixed hyperlipidemia 05/05/2022 Assessment & Plan (11/25/2024 12:42 PM EDT): Prescribed atorvastatin 80 mg nightly. Update lipid profile. Orders: Lipid Panel; Future Assessment & Plan (05/17/2024 3:43 PM EDT): Recent lipid profile satisfactory taken atorvastatin 80 mg nightly Assessment & Plan (11/19/2023 6:28 PM EDT): Taking atorvastatin 80 mg nightly with recent lipid profile satisfactory. Breast cancer 08/10/1997 Overview (05/05/2022): RIGHT Hx of radiation therapy 08/10/1997 Overview (05/05/2022): 15-20 TREATMENTS, RIGHT BREAST Resolved Problems Problem Noted Date Diagnosed Date Resolved Date TIA (transient ischemic attack) 10/28/2023 11/19/2023 Assessment & Plan (10/28/2023 2:47 PM EDT): Patient hospitalization at [facility] from 10/22/2023 through 02/27/2024 for right-sided numbness weakness and confusional episode with subsequent resolution after 18 to 24 hours. Negative workup including MRI of the head, PFO noted on echocardiogram, had change in Crestor to atorvastatin, addition of Plavix 75 mg daily to her aspirin 81 mg daily with plan for cardiology follow-up scheduled for next week, anticipating possible Holter monitor, further evaluation of her PFO, and possible carotid Dopplers. She also scheduled to follow-up with neurology in early 11/2023 to assess her clinical history. For now she will continue her current regimen including dual antiplatelet therapy. Has not had any recurrence of symptoms since her discharge. Abnormal findings on diagnos tic imaging of heart and coronary circulation 05/21/2023 Osteoporosis 01/26/2023 11/19/2023 Essential (primary) hypertension 05/05/2022 11/25/2024 Assessment & Plan (11/25/2024 12:42 PM EDT): Satisfactory blood pressure control acutely as well as by history chronically taking losartan 50 mg daily, HCTZ 25 mg daily, and metoprolol XL 25 mg daily. Continue healthy lifestyle efforts with regular monitoring. Orders: ECG 12 Lead Comprehensive Metabolic Panel; Future Urinalysis With Culture If Indicated -; Future Assessment & Plan (08/25/2024 6:23 PM EST): Slightly elevated today but normal at home. Will continue current medications. She is monitoring closely. Assessment & Plan (05/17/2024 3:43 PM EDT): Continues to maintain satisfactory blood pressure control acutely, noting not checking chronically, taking HCTZ 25 mg daily, losartan 50 mg daily, and metoprolol XL 25 mg daily. Continue healthy lifestyle efforts with monitoring Assessment & Plan (11/19/2023 6:29 PM EDT): Satisfactory blood pressure control acutely, noting not checking chronically, taking HCTZ 25 mg daily, losartan 50 mg daily, metoprolol XL 25 mg daily, and getting some benefit from Imdur 30 mg daily. Assessment & Plan (10/01/2023 3:48 PM EST): Hypertension is stable and controlled Continue current treatment regimen. Dietary sodium restriction. Regular aerobic exercise. Blood pressure will be reassessed in 6 months. Assessment & Plan (05/21/2023 10:14 AM EDT): Hypertension is well controlled . Continue current treatment regimen. Dietary sodium restriction. Regular aerobic exercise. Blood pressure will be reassessed at the next regular appointment Assessment & Plan (05/05/2023 11:31 AM EDT): Hypertension is well controlled . Continue current treatment regimen. Dietary sodium restriction. Regular aerobic exercise. Blood pressure will be reassessed at the next regular appointment. Assessment & Plan (01/13/2023 9:22 AM EDT): Hypertension is well controlled . Continue current treatment regimen. Blood pressure will be reassessed at the next regular appointment. Encounters Date Type Department Care Team Description 03/23/2025 11:30 AM EDT Office Visit [facility] [address] [facility] [address] [place] [address] Heidi Lin MD MATEO on CPAP (Primary Dx); Shortness of breath; ASD (atrial septal defect) 03/23/2025 Travel 03/08/2025 Telephone [facility] [address] [place] [address] Heidi Lin MD 02/01/2025 10:30 AM EDT Office Visit [facility] [address] [place] [address] [place] [address] Jb Richards MD Acute diverticulitis (Primary Dx); Primary hypertension 02/01/2025 Travel 02/01/2025 Results Follow-Up [facility] [address] [facility] [address] [place] [address] Aruna Walden APRN 01/30/2025 1:30 PM EDT Office Visit [facility] [address] [facility] [address] [place] [address] Aruna Walden, BUSINESS RECORDS MANAGER Microscopic hematuria (Primary Dx); Suprapubic pain 01/30/2025 Travel 01/18/2025 10:00 AM EDT Office Visit [facility] [address] [facility] [address] [place] [address] Yannick Alfred MD Primary osteoarthritis of right knee (Primary Dx) 01/18/2025 Travel from Last 3 Months Immunizations Immunization Administration Dates Next Due COVID-19 (PFIZER) 12YRS+ (COMIRNATY) 11/25/2024 COVID-19 (PFIZER) BIVALENT 12+YRS 10/07/2022 COVID-19 (PFIZER) Purple Cap Monovalent 07/01/2021,11/14/2020,10/17/2020 COVID-19 (UNSPECIFIED) 10/09/2022,2020,11/14/2020,10/05 FLUAD TRI 65YR+ 04/20/2018 Fluad Quad 65+ 04/10/2020 Fluzone >6mos 04/10/2020 Fluzone High-Dose 65+YRS 05/17/2024,05/23/2019 Fluzone High-Dose 65+yrs 04/30/2023,04/30/2022 Influenza Seasonal Injectable 04/20/2018 Influenza, Unspecified 05/03/2021 Pneumococcal Conjugate 20-Va lent (PCV20) 10/24/2022 Pneumococcal Polysaccharide (PPSV23) 05/24/2019 Shingrix 05/10/2018,12/15/2017 Td (TDVAX) 10/14/1996 Tdap 04/03/2014 Family History Medical History Relation Name Comments Breast cancer Cousin Cancer Father Rakel Cook Coronary artery disease Father Rakel Cook TRIP LE BYPASS SURGERIES Heart attack Father Rakel Cook Heart disease Father Rakel Cook Hyperlipidemia Father Rakel Cook Asthma Mother Itzel [place] Cancer Mother Itzel Cook Colon cancer Hypertension Mother Itzel Cook Osteoporosis Mother Dot Joyce Heart disease Other Hypertension Other 2 [place] Cancer Sister 1 Caryn [place] Hyperlipidemia Sister 1 Caryn [place] Hypertension Sister 1 Caryn [place] Cancer Sister 2 Ivana Wernerspersen Hyperlipidemia Sister 2 Ivana Wernerspersen Ovarian cancer Neg Hx Relation Name Status Comments Cousin Father Rakel Cook Mother Itzel Cook Other Sister 1 Caryn [place] Alive Sister 2 Ivana Ramirez Alive Social History Tobacco Use Types Packs/Day Years [...] Pulse 65 03/23/2025 10:58 AM EDT Temperature 36.6 C (97.9 F) 02/01/2025 10:28 AM EDT Respiratory Rate 18 05/17/2024 2:15 PM EDT Oxygen Saturation 95% 03/23/2025 10:58 AM EDT Inhaled Oxygen Concentration - - Weight 83 kg (183 lb) 03/23/2025 10:58 AM EDT Height 157.5 cm (5' 2 ) 03/23/2025 10:58 AM EDT Body Mass Index 33.47 03/23/2025 10:58 AM EDT Plan of Treatment Upcoming Encounters Date Type Department Care Team (Late st Contact Info) Description 05/19/2025 10:50 AM EDT Office Visit [facility] [address] [facility] [address] [place] [address] Yannick Alfred MD [address] [facility] [address] [place] [address] 05/26/2025 8:30 AM EDT Office Visit [facility] [address] [place] [address] [place] [phone] Jb Richards MD [address] [place] [address] [place] [address] 08/24/2025 10:30 AM EST Office Visit [facility] [address] [facility] [address] [place] [address] Michelle Johnson APRN [address] [facility] [address] [address] 09/19/2025 10:00 AM EST Appointment [facility] [place] [address] [facility] [address] [place] [phone] 09/28/2025 10:30 AM EST Office Visit [facility] [address] [facility] [address] [place] [address] Heidi Lin MD [address] [place] [address] 01/30/2026 11:30 AM EDT Office Visit [facility] [address] [facility] [address] [place], [place] [phone] Aruna Walden APRN [address] [facility] [address] [place] [address] Health Maintenance Due Date Last Done Comments COLOGUARD 1998 COLON CANCER SCREENING 5 YEA R SIGMOIDOSCOPY 1998 CT COLONOGRAPHY 1998 FECAL OCCULT BLOOD TEST 1998 FIT Testing (1 year) 1998 TDAP/TD VACCINES (3 - Td or Tdap) 04/03/2024 014, 10/14/1996 INFLUENZA VACCINE 05/10/2025 05/17/2024, , 04/30/2022, Additional history exists COVID-19 Vaccine ( season) 2025 11/25/2024, 10/09/2022, 10/07/2022, Additional history exists ANNUAL WELLNESS VISIT 11/25/2025 11/25/2024 , 11/25/2024, 11/19/2023, Additional history exists LIPID PANEL 11/25/2025 11/25/2024, 10/2023, 02/10/2024, Additional history exists MAMMOGRAM 10/04/2026 10/04/2024, 09/11, 09/30/2024, Additional history exists DXA SCAN 11/30/2026 11/30/2024, 11/09, 01/27/2023, Additional history exists COLONOSCOPY 05/18/2028 05/18/2023, 04/2023, 07/08/2018 COLORECTAL CANCER SCREENING 05/18/2028 ZOSTER VACCINE Completed 05/10/2018, 12/15/2017 HEPATITIS C SCREENING Completed 05/06/2022 Pneumococcal Vaccine 50+ Completed 10/24/2022, 05/10 Procedures Procedure Name Priority Date/Time Associated Diagnosis Comments SCANNED - LABS 03/22/2025 SCANNED - PULMONARY RESULTS 03/21/2025 URINALYSIS AND MICROSCOPIC Routine 01/30/2025 4:08 PM EDT Microscopic hematuria URINALYSIS, MICROSCOPIC ONLY Routine 01/30/2025 4:08 PM EDT Microscopic hematuria URINALYSIS WITHOUT MICROSCOPIC (NO CULTURE) Routine 01/30/2025 4:08 PM EDT Microscopic hematuria URINE CULTURE Routine 01/30/2025 3:38 PM EDT Microscopic hematuria POCT URINALYSIS DIPSTICK, AUTOMATED Routine 01/30/2025 2:54 PM EDT Microscopic hematuria AL ARTHROCENTESIS ASPIR&/INJ MAJOR JT/BURSA W/O US Routine 01/18/2025 11:13 AM EDT Primary osteoarthritis of right knee XR KNEE 4+ VW RIGHT Routine 01/18/2025 1 0:20 AM EDT Primary osteoarthritis of right knee DEXA BONE DENSITY AXIAL Routine 11/30/2024 Encounter for general adult medical examination with abnormal findings Postmenopausal LIPID PANEL Routine 11/25/2024 9:36 AM EDT Encounter for general adult medical examination with abnormal findings Mixed hyperlipidemia MAMMO SCREENING DIGITAL TOMOSYNTHESIS BILATERAL W CAD Routine 09/30/2024 Encounter for screening mammogram for malignant neoplasm of breast SCANNED - COLONOSCOPY 05/18/2023 HEPATITIS C ANTIBODY Routine 05/06/2022 11:15 AM EDT Need for hepatitis C screening test from Last 3 Months or Most Recently Relevant to Health Maintenance Results * LABS SCANNED (03/22/2025) Jb Richards MD LAB BLOOD ORDERABLES Final Res ult * Pulmonary Results Scan (03/21/2025) Heidi Lin MD PFT ORDERABLES Final Result * Urinalysis, Microscopic Only - Urine, Clean Catch (01/30/2025 4:08 PM EDT) RBC, UA 0-2 None Seen, 0-2 /HPF 01/30/2025 11:55 PM EDT [facility] WBC, UA None Seen None Seen, 0-2 /HPF 01/30/2025 11:55 PM EDT [facility] Bacteria, UA None Seen None Seen /HPF 01/30/2025 11:55 PM EDT [facility] Squamous Epithelial Cells, UA 0-2 None Seen, 0-2 /HPF 01/30/2025 11:55 PM EDT [facility] Hyaline Casts, UA None Seen None Seen /LPF 01/30/2025 11:55 PM EDT [facility] Methodology Automated Microscopy 01/30/2025 11:55 PM EDT [facility] Urine Urine specimen obtained by clean catch procedure / Unknown Collection / Unknown 01/30/2025 4:08 PM EDT 01/30/2025 4:08 PM EDT Aruna Walden BUSINESS RECORDS MANAGER URINE ORDERABLES Final Result [facility]
[address] [place] [address], [place] [phone] * (ABNORMAL) Urinalysis without microscopic (no culture) - Urine, Clean Catch (01/30/2025 4:08 PM EDT) Color, UA Yellow Yellow, Straw 01/31/2025 12:31 AM [facility] Appearance, UA Slightly Cloudy(A) Clear 01/31/2025 12:31 AM [facility] pH, UA 7.0 5.0 - 8.0 01/31/2025 12:31 AM [facility] Specific Polaris, UA 1.007 1.005 - 1.030 01/31/2025 12:31 AM [facility] Glucose, UA Negative Negative 01/31/2025 12:31 AM EDT [facility] Ketones, UA Negative Negative 01/31/2025 12:31 AM [facility] Bilirubin, UA Negative Negative 01/31/2025 12:31 AM [facility] Blood, UA Trace(A) Negative 01/31/2025 12:31 AM [facility] Protein, UA Negative Negative 01/31/2025 12:31 AM [facility] Leuk Esterase, UA Negative Negative 01/31/2025 12:31 AM [facility] Nitrite, UA Negative Negative 01/31/2025 12:31 AM [facility] Urobilinogen, UA 0.2 E.U./dL 0.2 - 1.0 E.U./dL 01/31/2025 12:31 AM [facility] Urine Urine specimen obtained by clean catch procedure / Unknown Collection / Unknown 01/30/2025 4:08 PM EDT 01/30/2025 4:08 PM EDT us Aruna Walden BUSINESS RECORDS MANAGER URINE ORDERABLES Final Result [facility]
[address] [place] [address], * Urine Culture - Urine, Urine, Clean Catch (01/30/2025 3:38 PM EDT) Urine Culture No growth MARLENE 02/01/2025 1:19 AM [facility] Urine Urine specimen obtained by clean catch procedure / Unknown Collection / Unknown 01/30/2025 3:38 PM EDT 01/30/2025 3:38 PM EDT Aruna Walden BUSINESS RECORDS MANAGER MICROBIOLOGY - GENERAL ORDERABL ES Final Result Performing Organization Address [facility]/ZIP Co de Phone Number [facility]
[address] [place] [address], [place] [phone] * (ABNORMAL) POC Urinalysis Dipstick, Automated (01/30/2025 2:54 PM EDT) Color Yellow Yellow, Straw, Dark Yellow, Trish [facility] Clarity, UA Clear Clear [facility] Specific Polaris 1.005 1.005 - 1.030 [facility] pH, Urine 6.5 5.0 - 8.0 [facility] Leukocytes Negative Negative [facility] Nitrite, UA Negative Negative [facility] Protein, POC Negative Negative mg/dL [facility] Glucose, UA Negative Negative mg/dL [facility] Ketones, UA Negative Negative [facility] Urobilinogen, UA Normal Normal, 0.2 E.U./dL [facility] Bilirubin Negative Negative [facility] Blood, UA 1+(A) Negative [facility] Lot Number [id number] [facility] Expiration Date 04/28/2026 [facility] Urine 01/30/2025 2:54 PM EDT us Aruna Walden BUSINESS RECORDS MANAGER POINT OF CARE TEST ORDERABLES F inal Result [facility]
[address] [place] [address], [place] [phone] * AL ARTHROCENTESIS ASPIR&/INJ MAJOR JT/BURSA W/O US (01/18/2025 11:13 AM EDT) Narrative Melissa Larsen MA - 01/18/2025 11:13 AM EDT Melissa LarsenALONSO 01/18/2025 11:44 AM - Large Joint Arthrocentesis: R knee on 01/18/2025 11:13 AM Indications: pain Details: 21 G needle, anterolateral approach Medications: 4 mL ropivacaine 0.5 %; 40 mg triamcinolone acetonide 40 MG/ML Aspirate: 6 mL clear and yellow Outcome: tolerated well, no immediate complications Procedure, treatment alternatives, risks and benefits explained, specific risks discussed. Consent was given by the patient. Immediately prior to procedure a time out was called to verify the correct patient, procedure, equipment, patient support assistant and site/side marked as required. Patient was prepped and draped in the usual sterile fashion. us Yannick Alfred MD PROCEDURE/MINOR SURGICAL ORDER SHELLIE Final Result * XR Knee 4+ View Right (01/18/2025 10:20 AM EDT) Anatomical Region Laterality Modality Lower Extremities, Knee Right Xray Narrative 01/18/2025 10:40 AM EDT Right Knee Radiographs Indication: right knee pain Views: Standing AP's and skiers of both knees, with lateral and sunrise views of the right knee Comparison: AP view only, 06/17/2021 Findings: Near [id number] contact lateral compartment, tricompartmental degenerative changes, no acute bony abnormalities. No unusual bony features. Mild worsening compared to the previous imaging. Knee arthritis. Yannick Alfred MD [facility] [place] [place] DIAGNOSTIC IMAGING ORDERAB LES Final Result * DEXA Bone Density Axial (11/30/2024) Anatomical Region Laterality Modality Wrist, Hip, L-spine N/A Radiographic Imaging us Jb Richards MD [facility] [place] [place] DXA ORDERABLES Final Resul t * (ABNORMAL) Lipid Panel (11/25/2024 9:36 AM EDT) Total Cholesterol 209(H) 100 - 199 mg/dL [facility] Triglycerides 168(H) 0 - 149 mg/dL [facility] HDL Cholesterol 61 >39 mg/dL [facility] VLDL Cholesterol Theodore 29 5 - 40 mg/dL [facility] LDL Chol Calc (NIH) 119(H) 0 - 99 mg/dL [facility] Blood Structure of right upper limb / Unknown 11/25/2024 9:36 AM EDT 11/25/2024 Comment:Blood Release to francisco javier Duran [facility] (AMBULATORY) - 11/26/2024 8:07 AM EDT Performed at: 01 - [address] [id number] Bus Aide: Syed Maki PhD, Phone: [phone] us Jb Richards MD LAB BLOOD ORDERABLES Final Res ult [facility] (AMBULATORY) [address] [place] [address], [place] [phone] [facility] [address] [place] [address], [place] [phone] * Mammo Screening Digital Tomosynthesis Bilateral With CAD (09/30/2024) Anatomical Region Laterality Modality Breast N/A Mammography us Jb Richards MD IMG MAMMOGRAPHY ORDERABLES Fin al Result * SCANNED - COLONOSCOPY (05/18/2023) us Jb Richards MD CHART REVIEW TABS Final Res ult * Hepatitis C Antibody (05/06/2022 11:15 AM EDT) Hep C Virus Ab <0.1 0.0 - 0.9 s/co ratio [facility] Comment: Negative: < 0.8 Indeterminate: 0.8 - 0.9 Positive: > 0.9 HCV antibody alone does not differentiate between previous resolved infection and active infection. The CDC and current clinical guidelines recommend that a positive HCV antibody result be followed up with an HCV RNA test to support the diagnosis of acute HCV infection. [facility] offers Hepatitis C Virus (HCV) RNA, Diagnosis, KESHIA (093334) and Hepatitis C Virus (HCV) Antibody with reflex to Quantitative Real-time PCR (218349). Blood Structure of right upper limb / Unknown 05/06/2022 11:15 AM EDT 05/06/2022 Comment:Blood Release to francisco javier valenzuela Renee [facility] ([facility]) - 05/07/2022 6:06 AM EDT [facility]formed at: [facility] [address], [place], [place] [id number] Bus Aide: Syed Maki PhD, Phone: [phone] us Jb Richards MD LAB BLOOD ORDERABLES Final Res ult [facility] [address] [place] [address], [place] [phone] [facility] [address] [place] [address], [place] [phone] from Last 3 Months or Most Recently Relevant to Health Maintenance Insurance MEDICARE A & B [facility] [place] Advance Directives * CPR (Attempt to Resuscitate) (Latest Code Status on File) Date Activated Date Inactivated Comments 10/22/2023 9:00 PM 10/24/2023 6:52 PM Question Answer Comments Code Status (Patient has no pulse and is not breathing): CPR (Attempt to Resuscitate) Medical Interventions (Patie nt has pulse or is breathing): Full Support Level Of Support Discussed With: Patient Care Teams Chemistry Technical Officer Relationship Specialty Start Date End Date Jb Richards MD [address] [place] [address] [place] [address] PCP - General Internal Medicine 05/14/22
--- OUTSIDE RECORDS SUMMARY | 2025-04-03 12:11 | XMS_ITS | Encounter Summary ---
Author Organization [employer] ([place], [place], [place], [place]) Address [address] [place] [address] Care Team Providers Care Lining Parts Sewer Name Role Phone Unavailable Primary Care Provider Unavailabl e Encounter Details Date Type Department Care Team (Late st Contact Info) Description 05/25/2019 Transcribed Document [facility] [facility] [address] [place] [address] ProviderAnupama MD [address] [place] [address] Social History Tobacco Use Types [...] you are awake and alert. ??? Take tfhu-wqa-ocelvoa and prescription medicines only as told by [...] 05/17/2014 Document Revised: 12/29/2016 Document Reviewed: 11/15/2016 [employer] Patient Education ? 2019 [employer] documented in this encounter Plan of Treatment Not on file documented as of this encounter Visit Diagnoses Not on filedocumented in this encounter
--- OUTSIDE RECORDS SUMMARY | 2025-04-03 12:11 | XMS_ITS | Encounter Summary ---
[facility] Address [address] [place] [address] Care Team Providers Care Fabrication And Assembly Supervisor Name Role Phone Jb Richards MD Primary Care Provider [phone] Encounter Details Date Type Department Care Team (Late st Contact Info) Description 11/28/2024 Telephone [facility] [address] [place] [address] Yannick Alfred MD [address] [place] [address] Social History Tobacco Use Types Packs/Day Years [...] Description 05/19/2025 10:50 AM EDT Office Visit [facility] [address] [facility] [address] [place] [address] Yannick Alfred MD [address] [facility] [address] [place] [address] 05/26/2025 8:30 AM EDT Office Visit [facility] [address] [place] [address] [place] [address] bJ Richards MD [address] [place] [address] 08/24/2025 10:30 AM EST Office Visit [facility] [address] [facility] [address] [place] [address] Michelle Johnson, RELIEF MAN [address] [facility] [address] [address] 09/19/2025 10:00 AM EST Appointment [facility] [place] [address] [facility] [address] [place] [address] 09/28/2025 10:30 AM EST Office Visit [facility] [address] [facility] [address] [place] [address] Heidi Lin MD [address] [place] [address] 01/30/2026 11:30 AM EDT Office Visit [facility] UR[facility] [address] [place] [address] [address] [place] [address] Aruna Walden APRN [address] [facility] [address] [place] [address] documented as of this encounter Visit Diagnoses Not on filedocumented in this encounter Care Teams Fabrication And Assembly Supervisor Relationship Specialty Start Date End Date Jb Richards MD [address] [place] [address] [place] [address] PCP - General Internal Medicine 05/14/22 documented as of this encounter
--- OUTSIDE RECORDS SUMMARY | 2025-04-03 12:11 | XMS_ITS | Encounter Summary ---
Author Organization [facility] Address [address] [place] [address] Care Team Providers Care Molding Machine Operator Helper Name Role Phone Jb Richards MD Primary Care Provider [phone] Encounter Details Date Type Department Care Team (Late st Contact Info) Description 03/08/2025 Telephone [facility] CARDIOLOGY [address] [place] [phone] Heidi Lin MD [address] [place], [place] [phone] Social History Tobacco Use Types Packs/Day Years [...] as of this encounter Miscellaneous Notes * Telephone Encounter - Kristina Pierce RegSched Rep - 03/09/2025 8:12 AM EDT FAXED * Telephone Encounter - Heidi Lin MD - 03/08/2025 3:24 PM EDT OK for clearnace * Telephone Encounter - Malini Goldstein RN - 03/08/2025 1:44 PM EDT .Any new symptoms since last OV such as chest pain SOA? denies Any worsening of edema or worsening palpitations? denies Any major medical issues since last OV we need to know? Routin EGD as she has had esophageal dilatation previously; scheduled for 03/22/25 Is the patient on Eliquis, xarelto, pradaxa? denies Is the patient on aspirin? denies Is the patient on brilinta (ticagrelor), plavix (clopidogrel), prasugrel (effient)? Plavix 75mg daily Is the patient on medications like mounjaro or ozempic? denies Last EKG? 11/25/[address] Richards's Last stress test? 05/11/23 Last echo? 05/13/23 Last heart cath or CCTA? Cath 05/25/19; CCTA 07/06/23 Last OV? 12/22/24 with follow up scheduled with Dr. Lin on 03/23/25. Do you have a history of MATEO?yes; on PAP tx. Baseline AHI 5. * Telephone Encounter - Yasmine Powell RegSched Rep - 03/08/2025 12:37 PM EDT Incoming fax request for cardiac clearance from Dr Sylvester at [facility]. Patient is having EGD on 03/22/25. P: [phone] F: [phone] documented in this encounter Plan of Treatment Upcoming Encounters Date Type Department Care Team (Late st Contact Info) Description 05/19/2025 10:50 AM EDT Office Visit [facility] ORTHOPEDICS & SPORTS MEDICINE [address] [facility] [address] [place] [phone] Yannick Alfred MD [address] [facility] [address] [place], [place] [id number] 05/26/2025 8:30 AM EDT Office Visit [facility] PRIMARY CARE [address] [place] [address] [place] [phone] Jb Richards MD [address] [place] [address] [place] [address] 08/24/2025 10:30 AM EST Office Visit [facility] NEUROLOGY [address] [facility] [address] [place] [address] Michelle Johnson APRN [address] [facility] [address] [address] 09/19/2025 10:00 AM EST Appointment [facility] [place] [address] [facility] [address] [place] [address] 09/28/2025 10:30 AM EST Office Visit [facility] CARDIOLOGY [address] [facility] [address] [place] [address] Heidi Lin MD [address] [address] 01/30/2026 11:30 AM EDT Office Visit [facility] UROLOGY [address] [facility] [address] [place] [address] Aruna Walden APRN [address] [facility] [address] [place] [address] documented as of this encounter Visit Diagnoses Not on filedocumented in this encounter Care Teams Molding Machine Operator Helper Relationship Specialty Start Date End Date Jb Richards MD [address] [place] [address] [place] [id number] PCP - General Internal Medicine 05/14/22 documented as of this encounter
--- OUTSIDE RECORDS SUMMARY | 2025-04-03 12:12 | XMS_ITS | Encounter Summary ---
Author Organization [employer] ([place], [place]) Address [address] [place] [address] Care Team Providers Care Anesthesiologist Physician Name Role Phone Unavailable Primary Care Provider Unavailabl e Encounter Details Date Type Department Care Team (Late st Contact Info) Description 05/25/2019 Transcribed Document [facility] Family Medicine [address] [place] [address] ProviderAnupama MD [address] [place] [address] Social History Tobacco Use Types [...] Source : Stated Height Entry Format : [place] Height, Feet : 5 ft(Converted to: 152 cm, 60 Inch) Height, Inches : 2 Inch(Converted to: 0 ft 2 Inch, 5.08 cm) Clinical Height : 157.48 cm Weight Source : Standing scale Weight Entry Format : [place] Clinical Dosing Weight : 83.64 kg Weight, Pounds : 184 lb Body Surface Area (BSA) : 1.85 m2 Body Mass Index : 33.7 kg/m2 (HI) [place] Body Weight : 50 kg Sandra Leon [...] #2 Relationship : na Primary Language : Spanish Communication Barrier : None Sandra Leon Registered [...] Scale Risk Level : 25-45 Medium Risk Nada Fall Interventions : Adequate lighting, Assistive devices [...]
--- OUTSIDE RECORDS SUMMARY | 2025-04-03 12:12 | XMS_ITS | Encounter Summary ---
Author Organization [employer] ([place], [place], [place], [place]) Address [address] [place] [address] Care Team Providers Care Smoking Pipe Repairer Name Role Phone Unavailable Primary Care Provider Unavailabl e Encounter Details Date Type Department Care Team (Late st Contact Info) Description 05/25/2019 Transcribed Document [facility] [place] [facility] [address] [place] [address] ProviderAnupama MD [address] [place] [address] Social History Tobacco Use Types [...] 05/25/2019 15:42 EDT Electronically signed by Priscila [facility] Conversion Tank Driver Cerner at 11/28/2022 11:27 AM CDT documented in this encounter Plan of Treatment Not on file documented as of this encounter Visit Diagnoses Not on filedocumented in this encounter
--- OUTSIDE RECORDS SUMMARY | 2025-04-03 12:12 | XMS_ITS | Referral Summary ---
Author Organization [facility] ([place], [place], [place], [place]) Address [address] [place] [address] Care Team Providers Care Senior Operations Manager Name Role Phone Unavailable Primary Care Provider [...]
--- OUTSIDE RECORDS SUMMARY | 2025-04-03 12:12 | XMS_ITS | Encounter Summary ---
Author Organization [employer] [facility] ([place], [place], [place], [place]) Address [address] [place] [address] Care Team Providers Care Tafe Registrar Name Role Phone Unavailable Primary Care Provider Unavailabl e Encounter Details Date Type Department Care Team (Late st Contact Info) Description 05/25/[address] [facility] Family Medicine [address] [place] [address] ProviderAnupama MD [address] [place] [address] Social History Tobacco Use Types [...] Anupama ProviderMD - 05/25/2019 3:43 PM CDT [facility] [place] [address] NATY GRAY SULLY :1955 Visit Time:05/25/2019 Your Visit Summary Your Care Team Admitting Physician - COBY JUÁREZ MD-CAR Attending Physician - COBY JUÁREZ MD-CAR Primary Care Physician - RAO BARONE (REF), -[facility] Referring Physician - COBY JUÁREZ MD-CAR Your [...] [address] [place] [phone] Business (1) Medications What How Much When [...] you are awake and alert. ??? Take hmoj-cyi-mycdllo and prescription medicines only as told by [...] 05/17/2014 Document Revised: 12/29/2016 Document Reviewed: 11/15/2016 [employer] Interactive Patient Education ?? 2019 [employer]. Emergency Awareness and Preventative Care STROKE is [...] Assistance with quitting is available by contacting 2-030-MOWD-NOW. This is a free resource providing counseling, [...] was given the opportunity to ask questions. Patient/Skinner Pelts Name: Patient/Skinner Pelts Signature: Relationship to Patient: Clinician/Hospital Skinner Pelts Signature: Date: documented in this encounter Plan of Treatment Not on file documented as of this encounter Visit Diagnoses Not on filedocumented in this encounter
--- OUTSIDE RECORDS SUMMARY | 2025-04-03 12:12 | XMS_ITS | Clinical Summary ---
Author Organization [facility] ([place], [place], [place], [place]) Address [address] [place] [address] Care Team Providers Care Bean Dumper Name Role Phone Unavailable Primary Care Provider [...]
== END 2025-04-03 23:59 | disposition home or self-care (01) ==
LOC: RAD 11:36
PROVIDERS: PCP Internal Medicine; Visit Provider Podiatrist
DX: S92.354K Nondisplaced fracture of fifth metatarsal bone, right foot, subsequent encounter for fracture with nonunion (principal); X58.XXXD Exposure to other specified factors, subsequent encounter
CPT/HCPCS: 73630

== ENCOUNTER 2025-05-04 12:42 | Outpatient (CLI) | payer MEDICARE, BC, SELFPAY ==
--- NOTE | 2025-05-04 12:46 | XR_ITS ---
FINAL REPORT CLINICAL HISTORY: evaluate fracture of shaft of 5th proximal phalanx COMPARISON: 04/30/2025 FINDINGS: AP, oblique and lateral views of the right foot were obtained. Fracture of the middle 5th proximal phalanx is noted. There is callus formation about the fracture line. No other fracture identified. The joint spaces are preserved. Soft tissues are unremarkable. IMPRESSION: Fifth proximal phalanx fracture with callus formation. Reviewed, Interpreted and Dictated by Juanis Woody MD Transcribed by Louisa Crowley Authenticated and . [facility]
== END 2025-05-04 23:59 | disposition home or self-care (01) ==
LOC: RAD 12:43
PROVIDERS: PCP Internal Medicine; Visit Provider Podiatrist
DX: S92.514D Nondisplaced fracture of proximal phalanx of right lesser toe(s), subsequent encounter for fracture with routine healing (principal); X58.XXXD Exposure to other specified factors, subsequent encounter
CPT/HCPCS: 73630